=== PATIENT | male | born 1970 ===

== ENCOUNTER 2018-03-02 09:23 | Inpatient (IN) | payer BC, MEDICAID ==
[2018-03-02] MEDS ORDERED: DiphenhydrAMINE 50 mg/ml Inj IVP STA (09:29)
[2018-03-02] MEDS ORDERED: Sodium Chloride 0.9% 1,000 ML IV STA ×2 (09:29→11:44)
--- NOTE | 2018-03-02 09:31 | ED PDOC ---
Arrival/HPI - General Time Seen by Provider: 03/02/18 09:26 Historian: Patient - History of Present Illness Narrative History of Present Illness (Text): 03/02/18 09:31 48 y/o male, pmh including seizure, psychiatric history of psychosis/ schizophrenia, nkda, biba for abnormal movement and yelling started this morning after using heroine x 2 hours. Pt. stated that he did use the heroine, can't control yelling and movement, no seizure activity, no chest pain or shortness of breath, no numbness or tingling, no night sweat, no rash, no palpitation, no change in vision, no homicidal or suicidal ideation, no other medical or psychological complaints. Past Medical History - Provider Review Nursing Documentation Reviewed: Yes - Cardiac Hx Cardiac Disorders: No Hx Hypertension: No - Pulmonary Hx Tuberculosis: No - Neurological HX Cerebrovascular Accident: No Hx Seizures: No - Hematological/Oncological Hx Cancer: No - Musculoskeletal/Rheumatological Hx Falls: No - Genitourinary/Gynecological Hx Sexually Transmitted Diseases: No - Psychiatric Hx Substance Use: Yes (Marijuana) Other/Comment: According to sister and mother - patient has been talking to himself in his room since he was a teenager, he has beem exhibiting these behaviors more severely over the past 6 months Family/Social History - Physician Review Nursing Documentation Reviewed: Yes Family/Social History: Unknown Family HX Smoking Status: Light Smoker < 10 Cigarettes Daily Hx Alcohol Use: No Hx Substance Use: Yes (Marijuana) Allergies/Home Meds Allergies/Adverse Reactions: Allergies No Known Allergies Allergy (Verified 03/02/18 10:07) Home Medications: Home Meds Medication Instructions Recorded Confirmed Unobtainable 03/02/18 03/02/18 Review of Systems - Review of Systems Constitutional: absent: Fatigue, Fevers Eyes: absent: Vision Changes ENT: absent: Hearing Changes Respiratory: absent: SOB, Cough Cardiovascular: absent: Chest Pain Gastrointestinal: absent: Abdominal Pain, Nausea, Vomiting Neurological: absent: Headache, Dizziness Psychiatric: Other (+abnormal contracture and yelling. ). absent: Anxiety, Depression, Suicidal Ideation Physical Exam Vital Signs Pulse Resp BP Pulse Ox 03/02/18 11:41 95 H 16 116/56 L 93 L 03/02/18 09:42 105 H 17 123/62 90 L - Systems Exam Head: Present: Atraumatic, Normocephalic Pupils: Present: Pinpoint (3mm) Extroacular Muscles: Present: EOMI Conjunctiva: Present: Normal Mouth: Present: Moist Mucous Membranes Neck: Present: Normal Range of Motion Respiratory/Chest: Present: Clear to Auscultation, Good Air Exchange. No: Respiratory Distress, Accessory Muscle Use Cardiovascular: Present: Regular Rate and Rhythm, Normal S1, S2. No: Murmurs Abdomen: No: Tenderness, Distention, Peritoneal Signs Back: Present: Normal Inspection Upper Extremity: Present: Normal Inspection. No: Cyanosis, Edema Lower Extremity: Present: Normal Inspection. No: Edema Neurological: Present: GCS=15, CN II-XII Intact, Speech Normal, Motor Func Grossly Intact, Gait Normal, Memory Normal, Other (abnormal contracture of bilateral upper and lower extremities with yelling) Skin: Present: Warm, Dry, Normal Color. No: Rashes Psychiatric: Present: Alert, Oriented x 3, Normal Insight, Normal Concentration Medical Decision Making ED Course and Treatment: 03/02/18 09:28 Differential: rhabdomylosis vs. electroyte imbalance vs. adverse effect from drug abuse vs. dystonia -labs/drug screen. -IVF/benadryl -Chest xray -Oxygen 2L nasal canula prn -Observe and reassess 03/02/18 09:51 -Yelling and abnormal contracture resolved with IV benadryl, resting well on bed , pending labs. 03/02/18 10:44 -CBC 23, afebrile, likely stress and drug abuse induced, woke up from the benadryl effect and was resolved but return with same signs and symptoms but much lesser severity, valium 10mg po ordered for his spasm, pending CMP and drug screen 03/02/18 11:02 -AST 600s, Ammonia and acetaminophen level ordered 03/02/18 12:30 -Chest xray: no active disease -EKG: Sinus Tachycardia @ 112 BPM, acute slightly ST depression noted on lead II /III/aVF, T wave inversion on lead V6. -Labs are non-significant except wbc 23.2 (blood culture ordered), Anion gap 31/ Bun 27/Creatine 1.9/AST 674/ALT 2872/GFR 38 which all these labs are acute, Potassium level 5.6 (kayaxylate 15gm po ordered), glucose 51 (D50 ordered, D5W 125cc/hr). -Troponin show -Ammonia level within normal limit. -Acetaminophen level within normal limit -Drug screen is negative -Pt. needs admission, spoke to the patient about all labs/radiology result, agreed to be admitted. -Dystonia currently resolved but he has new onset of renal failure with hyperkalemia and elevated LFTS/abnormal ekg which they all can be due to the rhabdomylosis but other underlying disease needs to be explored. -I spoke to Dr. Morales about the case, discussed about the case/labs/radiology result, agreed on the admission to her service -I discussed with DR. Winkler, he will put in the admission order. 03/02/18 14:00 -I spoke to the emergency medical services coordinator Dr. Morales, discussed about the case/labs and he will follow up on the pending troponin 03/02/18 14:17 -Troponin 0.46, no chest pain or shortness of breath, no cardiopulmonary complaints, likely kidney injury induced from rhabdomylosis, discussed and agreed with the decision by Dr. Winkler. 03/02/18 14:38 -I spoke to Dr. Morales HSolomon, discussed about troponin level, they will trend it. - Critical Care Critical Care Minutes: 30 minutes Critical Care Time: Unstable Narrative Critical Care (Text): 03/02/18 12:34 rhabdomylosis/renal failure/hyperkalemia/abnormal ekg/dystonia, aggresive IV hydration/benadryl/valium for his muscle contracture. - Lab Interpretations Lab Results: 03/02/18 09:30 03/02/18 10:14 Lab Results 03/02/18 12:00: Lactate Dehydrogenase 4281 H, Total Creatine Kinase Pending, Troponin I 0.46 H* D 03/02/18 11:30: Ammonia 33 03/02/18 11:30: Urine Opiates Screen Negative, Urine Methadone Screen Negative, Ur Barbiturates Screen Negative, Ur Phencyclidine Scrn Negative, Ur Amphetamines Screen Negative, U Benzodiazepines Scrn Negative, U Oth Cocaine Metabols Negative, U Cannabinoids Screen Negative 03/02/18 10:14: Sodium 141, Potassium 5.6 H*, Chloride 97 L, Carbon Dioxide 20 L , Anion Gap 30 H, BUN 27 H, Creatinine 1.9 H, Est GFR ( Amer) 46, Est GFR (Non-Af Amer) 38, Random Glucose 51 L, Calcium 9.3, Total Bilirubin 1.3, AST 674 H D, ALT 2872 H, Alkaline Phosphatase 173 H D, Total Creatine Kinase 76367 H, CK-MB (CK-2) 111.0 H, CK-MB (CK-2) % 1.0 L, Total Protein 7.1, Albumin 4.5, Globulin 2.6, Albumin/Globulin Ratio 1.7 03/02/18 09:45: Acetaminophen < 10.0 L 03/02/18 09:30: WBC 23.2 H D, RBC 3.81, Hgb 10.1 L D, Hct 31.3 L, MCV 82.2, MCH 26.5, MCHC 32.3, RDW 14.6 H, Plt Count 441, MPV 10.5, Gran % 64.7, Lymph % (Auto ) 16.7 L, [place]wey % (Auto) 17.2 H, Eos % (Auto) 0.9 L, Baso % (Auto) 0.5, Gran # 15.01 H, Lymph # (Auto) 3.9 H, [place]wey # (Auto) 4.0 H, Eos # (Auto) 0.2, Baso # ( Auto) 0.12 I have reviewed the lab results: Yes - RAD Interpretation Radiology Orders: 03/02/18 09:58 CHEST PORTABLE [RAD] Stat Date of service: 03/02/2018 HISTORY: medical clearance COMPARISON: 02/13/2018 FINDINGS: LUNGS: No active pulmonary disease. PLEURA: No significant pleural effusion identified, no pneumothorax apparent. CARDIOVASCULAR: Normal. OSSEOUS STRUCTURES: No significant abnormalities. VISUALIZED UPPER ABDOMEN: Normal. OTHER FINDINGS: None. IMPRESSION: No active disease. Waste Disposal Attendant: Radiologist - EKG Interpretation EKG Interpretation (Text): 03/02/18 11:47 Sinus Tachycardia @ 112 BPM, acute slightly ST depression noted on lead II/III/ aVF, T wave inversion on lead V6. Interpreted by ED Physician: Yes Type: 12 lead EKG Comparison: Com.w/previous EKG - Medication Orders Current Medication Orders: Heparin Sodium (Porcine) (Heparin) 5,000 units SC Q8 RAVI PRN Reason: Protocol Dextrose/Sodium Chloride (Dextrose 5%/0.9% Ns 1000 Ml) 1,000 mls @ 150 mls/hr IV .Q6H40M RAVI Discontinued Medications Dextrose (Dextrose 50% Inj) 50 ml IVP STAT STA Stop: 03/02/18 11:11 Last Admin: 03/02/18 11:34 Dose: 50 ml IVP Administration Document 03/02/18 11:34 [facility] [place] (Rec: 03/02/18 11:34 [facility] [place] [id number]) Charges for Administration # of IVP Administrations 1 Diazepam (Valium) 10 mg PO ONCE ONE PRN Reason: Protocol Stop: 03/02/18 10:41 Last Admin: 03/02/18 10:48 Dose: 10 mg Diphenhydramine HCl (Benadryl) 50 mg IVP STAT STA Stop: 03/02/18 09:30 Last Admin: 03/02/18 09:41 Dose: 50 mg IVP Administration Document 03/02/18 09:41 [facility] [place] (Rec: 03/02/18 09:41 [facility] [place] [id number]) Charges for Administration # of IVP Administrations 1 Sodium Chloride (Sodium Chloride 0.9%) 1,000 mls @ 999 mls/hr IV .Q1H1M STA Stop: 03/02/18 10:29 Last Admin: 03/02/18 09:40 Dose: 999 mls/hr eMAR Start Stop Document 03/02/18 09:40 [facility] [place] (Rec: 03/02/18 09:41 [facility] [place] [id number]) Intravenous Solution Start Date 03/02/18 Start Time 09:40 End Date 03/02/18 End time 10:41 Total Infusion Time 61 Sodium Chloride (Sodium Chloride 0.9%) 1,000 mls @ 999 mls/hr IV .Q1H1M STA Stop: 03/02/18 12:44 Last Admin: 03/02/18 11:55 Dose: 999 mls/hr eMAR Start Stop Document 03/02/18 11:55 [facility] [place] (Rec: 03/02/18 11:55 [facility] [place] [id number]) Intravenous Solution Start Date 03/02/18 Start Time 11:55 End Date 03/02/18 End time 12:56 Total Infusion Time 61 Dextrose/Sodium Chloride (Dextrose 5%/0.9% Ns 1000 Ml) 1,000 mls @ 125 mls/hr IV .Q8H RAVI Last Admin: 03/02/18 14:05 Dose: 125 mls/hr eMAR Start Stop Document 03/02/18 14:05 [facility] (Rec: 03/02/18 14:05 [facility] [id number]) Intravenous Solution Start Date 03/02/18 Start Time 14:05 Sodium Polystyrene Sulfonate (Kayexalate Susp) 15 gm PO ONCE ONE Stop: 03/02/18 11:11 Last Admin: 03/02/18 11:34 Dose: 15 gm - PA / DRY CLEANING SUPERVISOR / Resident Statement MD/DO has reviewed & agrees with the documentation as recorded. Disposition/Present on Arrival - Present on Arrival Any Indicators Present on Arrival: No History of DVT/PE: No History of Uncontrolled Diabetes: No Urinary Catheter: No History of Decub. Ulcer: No History Surgical Site Infection Following: None - Disposition Have Diagnosis and Disposition been Completed?: Yes Diagnosis: Renal failure, Hyperkalemia, Leukocytosis, Dystonia, Hypoglycemia, EKG abnormalities Disposition: HOSPITALIZED Disposition Time: 11:19 Patient Plan: Admission, Telemetry Patient Problems: Current Active Problems Problem Status Onset Dystonia Acute EKG abnormalities Acute Hyperkalemia Acute Hypoglycemia Acute Leukocytosis Acute Renal failure Acute Condition: STABLE
[2018-03-02 09:46] VITALS: BMI 21.7
[2018-03-02 09:50] LABS: BASO # 0.12 K/mm3 (0.0-2.0); BASO % 0.5 % (0.0-3.0); EOS # 0.2 (0.0-0.7); EOS % 0.9 % (1.5-5.0); GRAN # 15.01 (1.4-6.5); GRAN % 64.7 % (50.0-68.0); LYMPH # 3.9 (1.2-3.4); LYMPH % 16.7 % (22.0-35.0); MEAN CELL VOLUME 82.2 fl (80.0-105.0); MEAN CORPUSCULAR HEMOGLOBIN 26.5 pg (25.0-35.0); MEAN CORPUSCULAR HGB CONC 32.3 g/dl (31.0-37.0); MEAN PLATELET VOLUME 10.5 fl (7.0-11.0); MONO % 17.2 % (1.0-6.0); RBC 3.81 10^6/uL (3.5-6.1); RED CELL DISTRIBUTION WIDTH 14.6 % (11.5-14.5); WHITE BLOOD COUNT 23.2 10^3/ul (4.5-11.0)
[2018-03-02 09:51] LABS: HEMOGLOBIN 10.1 g/dL (14.0-18.0)
[2018-03-02 10:48] LABS: ALB/GLOB RATIO 1.7 (1.1-1.8); ALBUMIN 4.5 g/dL (3.0-4.8); CALCIUM 9.3 mg/dL (8.4-10.5)
--- NOTE | 2018-03-02 10:53 | RAD ---
Date of service: 03/02/2018 HISTORY: medical clearance COMPARISON: 02/13/2018 FINDINGS: LUNGS: No active pulmonary disease. PLEURA: No significant pleural effusion identified, no pneumothorax apparent. CARDIOVASCULAR: Normal. OSSEOUS STRUCTURES: No significant abnormalities. VISUALIZED UPPER ABDOMEN: Normal. OTHER FINDINGS: None. IMPRESSION: No active disease.
[2018-03-02] MEDS ORDERED: Sod Polystyrene Sulf 15 gm/60 ml Susp PO ONE (11:10)
[2018-03-02] MEDS ORDERED: Dextrose 50% SYRINGE Inj (50 ml) IVP STA (11:10)
[2018-03-02 11:58] LABS: OPIATES, UR NEGATIVE (NEGATIVE)
[2018-03-02 12:52] LABS: BARBITURATES, UR NEGATIVE (NEGATIVE); BENZODIAZEPINES, UR NEGATIVE (NEGATIVE); PHENCYCLIDINE, UR NEGATIVE (NEGATIVE)
[2018-03-02] MEDS ORDERED: Dextrose 5%/0.9% NS 1,000 ML IV SCH (13:00)
--- NOTE | 2018-03-02 13:10 | CP.PCM.HP ---
<Eliseo Morales - Last Filed: 03/02/18 15:56> History of Present Illness - History of Present Illness History of Present Illness: Subjective: CC: abnormal movement and yelling HPI: Patient is a 48 year old male with a past medical history of seizure disorder, EKG abnormalities, and psychosis/schizophrenia who presents to the emergency department via EMS for evaluation and treatment of agitation. Patient states he does not want family present at bedside and so his sister was asked to leave. Patient states he snorted what he believed to be heroin this morning. Patient admits to experiencing bilateral involuntary upper extremity contracture and recalls intermittent yelling. Denies associated pain. Denies auditory and visual hallucinations. Denies suicidal and homicidal ideation. Further denies fever, chills, chest pain, shortness of breath, abdominal pain, nausea, vomiting , diarrhea, and urinary symptoms. 12 point ROS negative except as indicated in HPI Past medical history: seizure disorder, EKG abnormalities, and psychosis/ schizophrenia Past Surgical History: none Allergies: NKDA Social History: patient admits to smoking occasionally, drinking alcohol occasionally, denies illicit drug use, currently unemployed Family History: unknown- as patient does not comply with question Medications: no pharmacy information provided, previous discharge medications include depakote 500mg BID and aspirin 81mg daily Physical Examination: - Constitutional Constitutional Exam: No acute distress - Head Exam Head Exam: ATRAUMATIC, NORMAL INSPECTION - Eye Exam Eye Exam: EOMI, Miosis bilaterally Normal appearance, PERRL - ENT Exam ENT Exam: Mucous Membranes Moist - Respiratory Exam Respiratory Exam: NORMAL BREATHING PATTERN. absent: Rales, Rhonchi, Wheezes, Respiratory Distress - Cardiovascular Exam Cardiovascular Exam: RRR, +S1, +S2. absent: Gallop, Rubs, Systolic Murmur - GI/Abdominal Exam GI & Abdominal Exam: Normal Bowel Sounds, Soft. absent: Distended, Firm, Organomegaly, Tenderness - Neurological Exam Neurological exam: Alert, Awake, Oriented x 3, muscle strength 5/5 bilateral upper and lower extremities, sensation is intact to touch, responds to verbal stimuli, follows commands - Psychiatric Exam Psychiatric exam: Erratic Behavior - Skin Skin Exam: Dry, Intact, Normal Color, Warm Assessment and Plan: Patient is a 48 year old male with a past medical history of seizure disorder, EKG changes, and psychosis/schizophrenia who was admitted for evaluation and treatment of agitation. In the emergency department the patient underwent routine lab work revealing a leukocytosis, anemia, hypoglycemia, elevated potassium, hypochloremia, azotemia, elevated LFTs, and elevated CPK. Patient was treated with 2L NS, 1 amp of D50, 15 grams of kayexylate, 10mg PO valium, 50mg IV benadryl, and placed on D5 NS @125cc/hr. CXR in ED revealed no active disease. EKG revealed ST depression in leads II, III, and AVF. Rhabdomyolysis - CPK reviewed, trended, and appreciated - elevated CPK 42757 - started D5 NS @ 150 cc/hr - recheck CPK and trend Agitation/ Erractic Behavior - ziprasidon prn ordered - psychiatry consulted- appreciate recommendations Acute Kidney Injury - BUN creatine reviewed and appreciated - likely secondary to rhabdomyolysis - start D5 NS @ 150 cc/hr - monitor closely via CMP Elevated Troponins, EKG ST Depression - cardiology consulted- as per recommendations no anticoagulation required at this time - EKG- Sinus Tachycardia HR 112 bpm, QTc 430ms, LV hypertrophy with repolariztion abnormality - troponins trended q6hx3, EKG q6hx3 - aspirin 324mg x 1, aspirin 81mg daily Leukocytosis - likely stress induced vs drug induced - UDS negative - will trend via CBC Elevated LFTs - likely rhabdomyolysis vs drug induced however acetaminophen level is below 10 and UDS negative - total bilirubin within normal limits - trend via CMP Hyperkalemia - 15 grams of kayexylate given in ED - repeat CMP pending at 1600 - no EKG changes Normocytic Anemia - hemoglobin reviewed, trended, and appreciated - at baseline History of Seizure Disorder - depakote level ordered and pending - started patient on home depakote - seizure precautions - neurology consulted- appreciate recommendations Prophylaxis - DVT ppx- SCDs - GI ppx- not indicated at this time Patient seen, case reviewed with, and plan approved by attending, Dr. Lorena Morales. Present on Admission - Present on Admission Any Indicators Present on Admission: No Past Patient History - Infectious Disease Hx of Infectious Diseases: None - Past Social History Smoking Status: Light Smoker < 10 Cigarettes Daily - CARDIAC Hx Cardiac Disorders: No Hx Hypertension: No - PULMONARY Hx Tuberculosis: No - NEUROLOGICAL HX Cerebrovascular Accident: No Hx Seizures: No - HEMATOLOGICAL/ONCOLOGICAL Hx Cancer: No - MUSCULOSKELETAL/RHEUMATOLOGICAL Hx Falls: No - GENITOURINARY/GYNECOLOGICAL Hx Sexually Transmitted Disorders: No - PSYCHIATRIC Hx Substance Use: Yes (Marijuana) Other/Comment: According to sister and mother - patient has been talking to himself in his room since he was a teenager, he has beem exhibiting these behaviors more severely over the past 6 months Meds Allergies/Adverse Reactions: Allergies Allergy/AdvReac Type Severity Reaction Status Date / Time No Known Allergies Allergy Verified 03/02/18 10:07 Results - Vital Signs Recent Vital Signs: Last Vital Signs Temp Pulse 95 H 03/02/18 11:41 Resp 16 03/02/18 11:41 BP 116/56 L 03/02/18 11:41 Pulse Ox 93 L 03/02/18 11:41 - Labs Result Diagrams: 03/02/18 09:30 03/02/18 10:14 Labs: Laboratory Results - last 24 hr 03/02/18 03/02/18 03/02/18 09:30 09:45 10:14 WBC 23.2 H D RBC 3.81 Hgb 10.1 L D Hct 31.3 L MCV 82.2 MCH 26.5 MCHC 32.3 RDW 14.6 H Plt Count 441 MPV 10.5 Gran % 64.7 Lymph % (Auto) 16.7 L [place] % (Auto) 17.2 H Eos % (Auto) 0.9 L Baso % (Auto) 0.5 Gran # 15.01 H Lymph # (Auto) 3.9 H [place] # (Auto) 4.0 H Eos # (Auto) 0.2 Baso # (Auto) 0.12 Sodium 141 Potassium 5.6 H* Chloride 97 L Carbon Dioxide 20 L Anion Gap 30 H BUN 27 H Creatinine 1.9 H Est GFR ( Amer) 46 Est GFR (Non-Af Amer) 38 Random Glucose 51 L Calcium 9.3 Total Bilirubin 1.3 AST 674 H D ALT 2872 H Alkaline Phosphatase 173 H D Ammonia Total Creatine Kinase 82756 H CK-MB (CK-2) 111.0 H CK-MB (CK-2) % 1.0 L Total Protein 7.1 Albumin 4.5 Globulin 2.6 Albumin/Globulin Ratio 1.7 Urine Opiates Screen Urine Methadone Screen Acetaminophen < 10.0 L 03/02/18 03/02/18 11:30 11:30 WBC RBC Hgb Hct MCV MCH MCHC RDW Plt Count MPV Gran % Lymph % (Auto) [place] % (Auto) Eos % (Auto) Baso % (Auto) Gran # Lymph # (Auto) [place] # (Auto) Eos # (Auto) Baso # (Auto) Sodium Potassium Chloride Carbon Dioxide Anion Gap BUN Creatinine Est GFR ( Amer) Est GFR (Non-Af Amer) Random Glucose Calcium Total Bilirubin AST ALT Alkaline Phosphatase Ammonia 33 Total Creatine Kinase CK-MB (CK-2) CK-MB (CK-2) % Total Protein Albumin Globulin Albumin/Globulin Ratio Urine Opiates Screen Negative Urine Methadone Screen Negative Acetaminophen <Lorena Morales R - Last Filed: 03/02/18 19:00> Results - Vital Signs Recent Vital Signs: Last Vital Signs Temp 98.7 F 03/02/18 18:02 Pulse 54 L 03/02/18 18:02 Resp 17 03/02/18 18:02 BP 115/61 03/02/18 18:02 Pulse Ox 98 03/02/18 18:02 - Labs Result Diagrams: 03/02/18 09:30 03/02/18 10:14 Attending/Attestation - Attestation I have personally seen and examined this patient.: Yes I have fully participated in the care of the patient.: Yes I have reviewed all pertinent clinical information: Yes Notes (Text): Patient seen and examined by me at 14:30 with resident. Case including HPI, physical exam, and physical assessment and plan discussed with resident. Agree with above with following additions/corrections. Patient is a 48-year-old male with past medical history significant for seizure disorder, EKG abnormalities, psychosis and schizophrenia that presented to the emergency room for abnormal movements and yelling. Patient was found at home to have muscle contractures in his arms which made him yell. Patient's family called the police who in return called EMS. Patient states he snorted what he believed was heroin a few hours prior. He states he got it from someone on the streets. He states this is the first time he's used it. Patient does complain of some bilateral arm pain. He denies using IV drugs. No chest pain or shortness of breath. No headaches or dizziness. No fevers or chills. No nausea, vomiting, abdominal pain. No dysuria. No neck pain or back pain. No diarrhea or constipation. Patient was recently admitted to the hospital with bizarre behavior. Patient was given Valium and Benadryl in the ED. Patient was also found to be hypoglycemic and given amp of D50. All 14 point review of systems reviewed by me. See above HPI. All the other systems are negative. Physical exam: Gen: Awake and alert sitting up in bed in no acute distress HEENT: Normocephalic, atraumatic. Extraocular muscles intact, pupils equal reactive, no scleral icterus. Oropharynx is pink and moist, no pharyngeal erythema or exudate appreciated. Neck is supple. Hearing grossly intact. Ears and nose externally unremarkable. Cardiovascular: Normal rhythm, normal S1-S2. No murmurs, rubs, or gallops appreciated Pulmonary: Normal respiratory effort. No rhonchi, rales or wheezing appreciated. Gastrointestinal: Soft, nontender, nondistended, positive bowel sounds all 4 quadrants, no guarding Musculoskeletal: Normal range of motion all extremities, no calf tenderness, no CVA tenderness. Central nervous system: AAO 3. Cranial nerves 2 through 12 grossly intact. 5 out of 5 muscle strength all extremities. Sensation intact. Dermatologic: Skin warm and dry Assessment and plan: Patient is a 48-year-old male with past medical history significant for seizure disorder, EKG abnormalities, psychosis and schizophrenia that presented to the emergency room for abnormal movements and yelling. Patient found to have KAREN, leukocytosis, hyperkalemia, hypoglycemia, elevated LFTs, elevated troponin, and rhabdomyolysis 1. Ingestion of unknown substance. Involuntary muscle contractures may be secondary to this. Patient is unsure what he took. Patient believed it was heroin, however UDS is negative. Psych consult, follow-up recommendations. 2. Rhabdomyolysis. Likely secondary to involuntary muscle contractures. Placed on IV fluids. Monitor CPK levels 3. Elevated LFTs. Likely secondary to rhabdomyolysis. Continue with IV fluids. Follow up repeat labs and monitor trend 4. KAREN. May be secondary to ingestion of unknown substance, dehydration, and rhabdomyolysis. Placed on IV fluids. Follow up repeat labs in a.m. 5. Elevated troponin. May be demand ischemia. Cardiology consult that, recommendations appreciated. Discussed with Dr. Billy. Continue with aspirin. Guarded on Coreg. Monitor on telemetry. Follow serial troponin and EKG. Patient was scheduled for outpatient stress test yesterday 03/01/2018 however he did not go to this appointment. 6. Hyperkalemia. Patient given calcium gluconate and Kayexalate. Follow up Repeat labs. 7. Hypoglycemia. Patient was given an amp of D50 in the emergency room. Placed on D5 IV fluids. Monitor blood sugar 7. Leukocytosis. Likely reactive. Follow up repeat labs. 8. Anemia. Chronic. H&H stable. Continue to monitor. 9. History of seizure disorder. Continue home Depakote. Follow up Depakote levels 10. History of agitation and psychosis. Psych consulted, follow-up recommendations. Placed on Geodon every 6 hours as needed. Placed on one-to-one 11. DVT prophylaxis. Heparin 5000 units subcutaneous every 8 hours Case was discussed in detail with the patient and durable medical equipment technician regarding current diagnosis and treatment plan.
[2018-03-02 14:01] LABS: TROPONIN I 0.46 ng/mL
[2018-03-02] MEDS: Dextrose 5%/0.9% NS 1,000 ML IV SCH ×2 (15:18→23:50)
--- NOTE | 2018-03-02 16:37 | CARD ---
APPROVED REPORT Date of service: 03/02/2018 EKG Measurement Heart [id number] [id number] <Conclusion> Sinus tachycardia Possible Left atrial enlargement Left ventricular hypertrophy with repolarization abnormality Abnormal ECG
[2018-03-02] MEDS ORDERED: Pneumococcal 23-Valent Vaccine IM ONE (17:14)
[2018-03-02] MEDS: Divalproex 500 mg DR(BID formulation) PO SCH (19:57)
[2018-03-02 20:29] LABS: ALB/GLOB RATIO 1.4 (1.1-1.8); ALBUMIN 3.4 g/dL (3.0-4.8); AST/SGOT 503 U/L (17-59); BLOOD UREA NITROGEN 27 mg/dL (7-21); CALCIUM 8.6 mg/dL (8.4-10.5); GFR AFRICAN-AMERICAN > 60; GFR NON-AFRICAN AMERICAN > 60
[2018-03-02 20:59] LABS: ALT/SGPT 2129 U/L (7-56); TROPONIN I 0.29 ng/mL
[2018-03-03] MEDS ORDERED: DiphenhydrAMINE 50 mg/ml Inj IVP ONE (03:59)
[2018-03-03] MEDS: Dextrose 5%/0.9% NS 1,000 ML IV SCH ×2 (06:42→21:00)
[2018-03-03 06:54] LABS: BASO # 0.04 K/mm3 (0.0-2.0); BASO % 0.6 % (0.0-3.0); EOS # 0.1 (0.0-0.7); EOS % 2.1 % (1.5-5.0); GRAN # 4.26 (1.4-6.5); GRAN % 69.1 % (50.0-68.0); LYMPH % 15.4 % (22.0-35.0); MEAN CELL VOLUME 80.5 fl (80.0-105.0); MEAN CORPUSCULAR HEMOGLOBIN 26.3 pg (25.0-35.0); MEAN CORPUSCULAR HGB CONC 32.7 g/dl (31.0-37.0); MEAN PLATELET VOLUME 10.3 fl (7.0-11.0); MONO # 0.8 (0.1-0.6); MONO % 12.8 % (1.0-6.0); RBC 3.34 10^6/uL (3.5-6.1)
[2018-03-03 07:14] LABS: ALB/GLOB RATIO 1.3 (1.1-1.8); ALBUMIN 2.7 g/dL (3.0-4.8); AST/SGOT 376 U/L (17-59); BLOOD UREA NITROGEN 25 mg/dL (7-21); CALCIUM 8.4 mg/dL (8.4-10.5); GFR AFRICAN-AMERICAN > 60; GFR NON-AFRICAN AMERICAN > 60
[2018-03-03 07:25] LABS: ALT/SGPT 1650 U/L (7-56); TROPONIN I 0.21 ng/mL
[2018-03-03 07:27] LABS: HEMOGLOBIN 8.8 g/dL (14.0-18.0); WHITE BLOOD COUNT 6.2 10^3/ul (4.5-11.0)
--- NOTE | 2018-03-03 08:28 | CARD ---
APPROVED REPORT Date of service: 03/02/2018 EKG Measurement Heart [id number] 92P50 [id number] <Conclusion> Sinus bradycardia with short OK LVH ST_T Changes-Correlate Clinically.
[2018-03-03] MEDS ORDERED: Magnesium 2 gm/50 ml NS 2 GM/50 ML BAG IVPB ONE (08:41)
[2018-03-03 08:52] LABS: CK MB% 1.4 % (2.5-3.0); CK-MB 41.7 ng/mL (0.0-3.6)
[2018-03-03] MEDS: Divalproex 500 mg DR(BID formulation) PO SCH (09:35)
--- NOTE | 2018-03-03 10:55 | CARD ---
APPROVED REPORT Date of service: 03/03/2018 EKG Measurement Heart [id number] <Conclusion> Sinus bradycardia with short MS RSR' or QR pattern in V1 suggests right ventricular conduction delay Moderate voltage criteria for LVH, may be normal variant ST-T Changes. Abnormal ECG
--- NOTE | 2018-03-03 11:48 | CP.PCM.CON ---
History of Present Illness - History of Present Illness History of Present Illness: Hiram Cross PGY2 - Neurology Consult Note for Dr. Hannah CC: History of seizure activity HPI: 48 year old male with past medical history of seizures, psychosis/ schizophrenia who presented to ED via EMS for agitation. Patient is interviewed with one to one sitter at bedside and without family present. During interview today patient indicated he had no reason to be brought to the hospital. When informed of previous records indicating bilateral involuntary upper extremity contracture and intermittent yelling he had no response. Patient indicated yesterday he felt fine and at his baseline and that he was brought to the hospital by his family. He denies any seizure activity, biting of tongue, loss of urine or bowel. He reports taking prescribed medication from pervious discharge for his seizures. He indicates that he is compliant with all of his medications. Patient denies auditory and visual hallucinations. Denies chest pain, shortness of breath, abdominal pain, headache, fever, chills, focal deficits, weakness and change in mental status. PMH: Seizure disorder, Psychosis/schizophrenia PSH: Denies SOCHX: Tobacco: light smoker, ETOH: Social, ID: Denies - Currently lives with family, unemployed FMH: Denies ALL: NKDA MEDS: Depakote 500mg BID, ASA 81mg Daily Review of Systems - Review of Systems All systems: reviewed and no additional remarkable complaints except (as mentioned in HPI) Past Patient History - Infectious Disease Hx of Infectious Diseases: None - Past Social History Smoking Status: Light Smoker < 10 Cigarettes Daily Alcohol: None Drugs: Denies - CARDIAC Hx Cardiac Disorders: No Hx Hypertension: No - PULMONARY Hx Tuberculosis: No - NEUROLOGICAL HX Cerebrovascular Accident: No Hx Seizures: No - HEENT Hx HEENT Problems: No - RENAL Hx Chronic Kidney Disease: No - ENDOCRINE/METABOLIC Hx Endocrine Disorders: No - HEMATOLOGICAL/ONCOLOGICAL Hx Cancer: No - INTEGUMENTARY Hx Dermatological Problems: Yes Other/Comment: abrasion left knee, multiple bruises ble, abrasions upper and mid back - MUSCULOSKELETAL/RHEUMATOLOGICAL Hx Falls: No - GASTROINTESTINAL Hx Gastrointestinal Disorders: Yes (weight loss) - GENITOURINARY/GYNECOLOGICAL Hx Sexually Transmitted Disorders: No - PSYCHIATRIC Hx Substance Use: Yes (Marijuana) Other/Comment: According to sister and mother - patient has been talking to himself in his room since he was a teenager, he has beem exhibiting these behaviors more severely over the past 6 months - SURGICAL HISTORY Hx Surgeries: No Meds Allergies/Adverse Reactions: Allergies Allergy/AdvReac Type Severity Reaction Status Date / Time No Known Allergies Allergy Verified 03/02/18 10:07 - Medications Medications: Current Medications Aspirin (Ecotrin) 81 mg PO DAILY [facility] Last Admin: 03/03/18 09:36 Dose: 81 mg Atorvastatin Calcium (Lipitor) 20 mg PO DIN [facility] Last Admin: 03/02/18 22:10 Dose: 20 mg Carvedilol (Coreg) 3.125 mg PO BID [facility] Last Admin: 03/03/18 09:38 Dose: Not Given Divalproex Sodium (Depakote Dr(*Bid*)) 500 mg PO BID [facility] PRN Reason: Protocol Last Admin: 03/03/18 09:35 Dose: 500 mg Heparin Sodium (Porcine) (Heparin) 5,000 units SC Q8 [facility] PRN Reason: Protocol Last Admin: 03/03/18 06:41 Dose: 5,000 units Dextrose/Sodium Chloride (Dextrose 5%/0.9% Ns 1000 Ml) 1,000 mls @ 150 mls/hr IV .Q6H40M [facility] Last Admin: 03/03/18 06:42 Dose: 150 mls/hr Ziprasidone (Geodon Inj) 20 mg IM Q6H PRN; Protocol PRN Reason: Agitation Physical Exam - Constitutional Appears: No Acute Distress - Head Exam Head Exam: ATRAUMATIC, NORMAL INSPECTION, NORMOCEPHALIC - Eye Exam Eye Exam: EOMI, PERRL - ENT Exam ENT Exam: Mucous Membranes Moist - Respiratory Exam Respiratory Exam: Clear to Auscultation Bilateral, NORMAL BREATHING PATTERN - Cardiovascular Exam Cardiovascular Exam: REGULAR RHYTHM, +S1, +S2 - GI/Abdominal Exam GI & Abdominal Exam: Normal Bowel Sounds, Soft. absent: Tenderness - Neurological Exam Neurological exam: Alert, Normal Gait, Oriented x3 Additional comments: AAOx3, no slurred speech or response to internal stimuli noted Coordination is intact Heel to lazcano appropriate negative rhomberg Strength 5/5 in all four extremities Insight poor - Psychiatric Exam Psychiatric exam: Normal Mood - Skin Skin Exam: Dry, Intact Results - Vital Signs Recent Vital Signs: Last Vital Signs Temp 97.9 F 03/03/18 00:01 Pulse 50 L 03/03/18 09:38 Resp 22 03/03/18 00:01 BP 122/64 03/03/18 00:01 Pulse Ox 98 03/02/18 18:02 - Labs Result Diagrams: 03/04/18 06:00 03/03/18 06:30 Labs: Laboratory Results - last 24 hr 03/02/18 03/02/18 03/03/18 20:05 20:05 00:20 WBC RBC Hgb Hct MCV MCH MCHC RDW Plt Count MPV Gran % Lymph % (Auto) [place] % (Auto) Eos % (Auto) Baso % (Auto) Gran # Lymph # (Auto) [place] # (Auto) Eos # (Auto) Baso # (Auto) D-Dimer, Quantitative 356 H Sodium 137 Potassium 4.1 Chloride 102 Carbon Dioxide 29 Anion Gap 11 BUN 27 H Creatinine 1.2 Est GFR ( Amer) > 60 Est GFR (Non-Af Amer) > 60 Random Glucose 82 Calcium 8.6 Phosphorus Magnesium Total Bilirubin 0.7 AST 503 H D ALT 2129 H Alkaline Phosphatase 116 Total Creatine Kinase CK-MB (CK-2) CK-MB (CK-2) % Troponin I 0.29 H* D 0.24 H* Total Protein 5.8 Albumin 3.4 Globulin 2.4 Albumin/Globulin Ratio 1.4 Valproic Acid 03/03/18 03/03/18 03/03/18 06:00 06:30 06:30 WBC 6.2 D RBC 3.34 L Hgb 8.8 L Hct 26.9 L MCV 80.5 MCH 26.3 MCHC 32.7 RDW 15.0 H Plt Count 193 MPV 10.3 Gran % 69.1 H Lymph % (Auto) 15.4 L [place] % (Auto) 12.8 H Eos % (Auto) 2.1 Baso % (Auto) 0.6 Gran # 4.26 Lymph # (Auto) 1.0 L [place] # (Auto) 0.8 H Eos # (Auto) 0.1 Baso # (Auto) 0.04 D-Dimer, Quantitative Sodium 140 Potassium 4.5 Chloride 105 Carbon Dioxide 28 Anion Gap 11 BUN 25 H Creatinine 1.1 Est GFR ( Amer) > 60 Est GFR (Non-Af Amer) > 60 Random Glucose 76 Calcium 8.4 Phosphorus 3.2 Magnesium 1.6 L Total Bilirubin 0.6 AST 376 H D ALT 1650 H Alkaline Phosphatase 118 Total Creatine Kinase 2969 H CK-MB (CK-2) 41.7 H CK-MB (CK-2) % 1.4 L Troponin I 0.21 H* Total Protein 4.8 L Albumin 2.7 L Globulin 2.1 Albumin/Globulin Ratio 1.3 Valproic Acid 21 L Assessment & Plan - Assessment and Plan (Free Text) Assessment: 48 year old male with past medical history of seizures, psychosis/schizophrenia who presented to ED via EMS for agitation was admitted for lab abnormalities including elevated LFTs, leukocytosis, hyperkalemia, azotemia, and elevated CPK indicating infectious process, rhabdo, KAREN, and elevated troponin rule out ACS. Plan: Muscle Rigidity/Contracture in setting of seizure disorder - History Of Seizure disorder, with previous prescription of Depakote 500mg PO BID - Valproic Acid level 21, low - Continue AED - Load with depakote 10mg/kg - Increase depakote maintenance to 750mg PO BID - Psych evaluation follow up Patient case and plan discussed with attending Simin Cross PGY2 - Date & Time Date: 03/03/18 Time: 10:40
--- NOTE | 2018-03-03 12:58 | CP.PCM.PN ---
<Godfrey Saenz - Last Filed: 03/03/18 13:42> Subjective - Date & Time of Evaluation Date of Evaluation: 03/03/18 Time of Evaluation: 12:54 - Subjective Subjective: Godfrey Saenz D.O PGY-1, Internal Medicine progress note for Dr. Morales Patient was examined at bedside, no acute overnight events. Patient offers no new complaints at this time. Denies fevers, chills, chest pain, shortness of breath, abdominal pain, N/V/D. Objective - Vital Signs/Intake and Output Vital Signs (last 24 hours): Temp Pulse Resp BP Pulse Ox 97.8 F 69 21 116/70 98 03/03/18 12:00 03/03/18 12:00 03/03/18 12:00 03/03/18 12:00 03/02/18 18:02 - Medications Medications: Current Medications Aspirin (Ecotrin) 81 mg PO DAILY [facility] Last Admin: 03/03/18 09:36 Dose: 81 mg Atorvastatin Calcium (Lipitor) 20 mg PO DIN [facility] Last Admin: 03/02/18 22:10 Dose: 20 mg Carvedilol (Coreg) 3.125 mg PO BID [facility] Last Admin: 03/03/18 09:38 Dose: Not Given Divalproex Sodium (Depakote Dr(*Bid*)) 500 mg PO BID [facility] PRN Reason: Protocol Last Admin: 03/03/18 09:35 Dose: 500 mg Heparin Sodium (Porcine) (Heparin) 5,000 units SC Q8 [facility] PRN Reason: Protocol Last Admin: 03/03/18 06:41 Dose: 5,000 units Dextrose/Sodium Chloride (Dextrose 5%/0.9% Ns 1000 Ml) 1,000 mls @ 150 mls/hr IV .Q6H40M [facility] Last Admin: 03/03/18 06:42 Dose: 150 mls/hr Ziprasidone (Geodon Inj) 20 mg IM Q6H PRN; Protocol PRN Reason: Agitation - Labs Labs: 03/03/18 06:30 03/03/18 06:30 - Constitutional Appears: No Acute Distress - Head Exam Head Exam: ATRAUMATIC, NORMAL INSPECTION - Eye Exam Eye Exam: Normal appearance - ENT Exam ENT Exam: Mucous Membranes Moist - Respiratory Exam Respiratory Exam: Clear to Ausculation Bilateral. absent: Rales, Rhonchi, Wheezes - Cardiovascular Exam Cardiovascular Exam: REGULAR RHYTHM, +S1, +S2. absent: Gallop, Rubs, Murmur - GI/Abdominal Exam GI & Abdominal Exam: Soft, Normal Bowel Sounds. absent: Tenderness - Extremities Exam Extremities Exam: Joint Swelling. absent: Calf Tenderness, Pedal Edema - Neurological Exam Neurological Exam: Alert, Awake, Oriented x3 - Psychiatric Exam Psychiatric exam: Normal Affect, Normal Mood - Skin Skin Exam: Dry, Normal Color, Warm Assessment and Plan - Assessment and Plan (Free Text) Assessment: Mr. Reece is a 48 year old male with a past medical history of seizure disorder , EKG changes, and psychosis/schizophrenia who was admitted for evaluation and treatment of agitation. In the emergency department the patient underwent routine lab work revealing a leukocytosis, anemia, hypoglycemia, elevated potassium, hypochloremia, azotemia, elevated LFTs, and elevated CPK. Plan: Rhabdomyolysis - CPK: 2969 from [address]24- downtrending - c/w D5 NS @ 150 cc/hr - recheck CPK and trend Agitation/ Erractic Behavior - ziprasidon 20mg IM Q6H PRN - psychiatry consulted- appreciate recommendations History of Seizure Disorder - depakote level: 21 (normal: 50-100) - started patient on home depakote - seizure precautions - neurology consulted- appreciate recommendations Elevated Troponins, EKG ST Depression - cardiology consulted- as per recommendations no anticoagulation required at this time - V/Q scan (03/03): Low probability for pulmonary embolism - EKG- Sinus Tachycardia HR 112 bpm, QTc 430ms, LV hypertrophy with repolariztion abnormality - troponins: 0.46, 0.29, 024, 0.21- downtrending - c/w aspirin 81mg daily Elevated LFTs - likely rhabdomyolysis vs drug induced - acetaminophen level is below 10 and UDS negative - LFT's downtrending - continue to monitor Acute Kidney Injury- resolved - creatine 1.1 from 1.9- downtrending - likely secondary to rhabdomyolysis Leukocytosis - resolved - likely stress induced vs drug induced - UDS negative Normocytic Anemia - hemoglobin reviewed, trended, and appreciated - at baseline Prophylaxis - DVT ppx- SCDs Patient seen, case reviewed with, and plan approved by attending, Dr. Morales. <Morales,Lorena R - Last Filed: 03/03/18 16:32> Objective - Vital Signs/Intake and Output Vital Signs (last 24 hours): Temp Pulse Resp BP Pulse Ox 97.8 F 55 L 21 116/70 98 03/03/18 12:00 03/03/18 14:00 03/03/18 12:00 03/03/18 12:00 03/02/18 18:02 - Medications Medications: Current Medications Aspirin (Ecotrin) 81 mg PO DAILY [facility] Last Admin: 03/03/18 09:36 Dose: 81 mg Atorvastatin Calcium (Lipitor) 20 mg PO DIN [facility] Last Admin: 03/02/18 22:10 Dose: 20 mg Carvedilol (Coreg) 3.125 mg PO BID [facility] Last Admin: 03/03/18 09:38 Dose: Not Given Divalproex Sodium (Depakote Dr(*Bid*)) 500 mg PO BID [facility] PRN Reason: Protocol Last Admin: 03/03/18 09:35 Dose: 500 mg Heparin Sodium (Porcine) (Heparin) 5,000 units SC Q8 [facility] PRN Reason: Protocol Last Admin: 03/03/18 13:43 Dose: 5,000 units Dextrose/Sodium Chloride (Dextrose 5%/0.9% Ns 1000 Ml) 1,000 mls @ 150 mls/hr IV .Q6H40M [facility] Last Admin: 03/03/18 06:42 Dose: 150 mls/hr Ziprasidone (Geodon Inj) 20 mg IM Q6H PRN; Protocol PRN Reason: Agitation - Labs Labs: 03/03/18 06:30 03/03/18 06:30 Attending/Attestation - Attestation I have personally seen and examined this patient.: Yes I have fully participated in the care of the patient.: Yes I have reviewed all pertinent clinical information, including history, physical exam and plan: Yes Notes (Text): Patient seen and examined by me at 11:50AM with resident. Case including HPI, physical exam, and physical assessment and plan discussed with resident. Agree with above with following additions/corrections. Patient states that he is feeling fine. He denies chest pain or shortness of breath. No headaches or dizziness. No fevers or chills. No nausea, vomiting, abdominal pain. No dysuria. No neck pain or back pain. No diarrhea or constipation. Patient is on one to one. Patient was witnessed by myself to have contractures of his arms while yelling when he was being transported for V/Q Scan. Patient does not remember this. Physical exam: Gen: Awake and alert sitting up in bed in no acute distress HEENT: Normocephalic, atraumatic. Extraocular muscles intact, pupils equal reactive, no scleral icterus. Oropharynx is pink and moist, no pharyngeal erythema or exudate appreciated. Neck is supple. Hearing grossly intact. Ears and nose externally unremarkable. Cardiovascular: Normal rhythm, normal S1-S2. No murmurs, rubs, or gallops appreciated Pulmonary: Normal respiratory effort. No rhonchi, rales or wheezing appreciated. Gastrointestinal: Soft, nontender, nondistended, positive bowel sounds all 4 quadrants, no guarding Musculoskeletal: Normal range of motion all extremities, no calf tenderness, no CVA tenderness. Central nervous system: AAO 3. Cranial nerves 2-12 grossly intact. 5/5 muscle strength all extremities. Sensation intact. Dermatologic: Skin warm and dry Assessment and plan: Patient is a 48-year-old male with past medical history significant for seizure disorder, EKG abnormalities, psychosis and schizophrenia that presented to the emergency room for abnormal movements and yelling. Patient found to have KAREN, leukocytosis, hyperkalemia, hypoglycemia, elevated LFTs, elevated troponin, and rhabdomyolysis 1. Ingestion of unknown substance. Involuntary muscle contractures may be secondary to this. Psych consulted, recommendations pending. Patient is unsure what he took. Patient believed it was heroin, however UDS is negative. 2. Rhabdomyolysis. Likely secondary to involuntary muscle contractures. Resolving. Continue IV fluids. 3. Elevated LFTs. Likely secondary to rhabdomyolysis. Resolving, continue IV fluids. 4. KAREN. May be secondary to ingestion of unknown substance, dehydration, and rhabdomyolysis. Resolving, continue IV fluids. 5. Elevated troponin. May be demand ischemia. Cardiology consulted, recommendations appreciated. Continue with aspirin and Coreg. Monitor on telemetry. Downtrending troponin. Patient was scheduled for outpatient stress test 03/01/2018 however he did not go 6. Hyperkalemia. Resolved. Continue to monitor. 7. Hypoglycemia. Resolved. Continue to monitor. 8. Leukocytosis. Likely reactive. Resolved. 9. Anemia. Chronic. H&H downtrended, likely dilutional. Continue to monitor. 10. History of seizure disorder. Continue home Depakote. Depakote levels low, neurology following, recommendations appreciated. 11. History of agitation and psychosis. Psych consulted, recommendations pending. Continue on Geodon every 6 hours as needed. Continue one-to-one 12. Elevated D-dimer. V/Q scan low probablity. 13. DVT prophylaxis. Heparin 5000 units subcutaneous every 8 hours Case was discussed in detail with the patient and medical information specialist regarding current diagnosis and treatment plan.
--- NOTE | 2018-03-03 13:10 | NM ---
Date of service: 03/03/2018 COMPARISON: 03/02/2018 chest TECHNIQUE: 34.9 mCi technetium 99-m DTPA aerosol. 3.2 mCI technetium 99-m MAA administered intravenously. FINDINGS: VENTILATION COMPONENT: Normal. PERFUSION COMPONENT: Normal. IMPRESSION: Lowprobability ventilation perfusion scan for pulmonary embolism.
[2018-03-03] MEDS ORDERED: SODIUM CHLORIDE 0.9% IVPB ONE (18:00)
[2018-03-03] MEDS ORDERED: Divalproex 250 mg DR (BID formulation) PO SCH (18:00)
[2018-03-03] MEDS ORDERED: VALPROATE IVPB ONE (18:00)
[2018-03-04] MEDS: Dextrose 5%/0.9% NS 1,000 ML IV SCH ×5 (06:45→22:53)
[2018-03-04 07:00] LABS: BASO # 0.03 K/mm3 (0.0-2.0); BASO % 0.7 % (0.0-3.0); EOS # 0.1 (0.0-0.7); EOS % 2.6 % (1.5-5.0); GRAN # 2.43 (1.4-6.5); GRAN % 58.2 % (50.0-68.0); HEMOGLOBIN 8.5 g/dL (14.0-18.0); LYMPH % 24.4 % (22.0-35.0); MEAN CELL VOLUME 81.7 fl (80.0-105.0); MEAN CORPUSCULAR HEMOGLOBIN 26.8 pg (25.0-35.0); MEAN CORPUSCULAR HGB CONC 32.8 g/dl (31.0-37.0); MEAN PLATELET VOLUME 10.3 fl (7.0-11.0); MONO # 0.6 (0.1-0.6); MONO % 14.1 % (1.0-6.0); RBC 3.17 10^6/uL (3.5-6.1); RED CELL DISTRIBUTION WIDTH 15.1 % (11.5-14.5); WHITE BLOOD COUNT 4.2 10^3/ul (4.5-11.0)
[2018-03-04 08:06] LABS: ALB/GLOB RATIO 1.3 (1.1-1.8); ALBUMIN 2.7 g/dL (3.0-4.8); AST/SGOT 341 U/L (17-59); BLOOD UREA NITROGEN 15 mg/dL (7-21); GFR AFRICAN-AMERICAN > 60; GFR NON-AFRICAN AMERICAN > 60
[2018-03-04 08:13] LABS: ALT/SGPT 1410 U/L (7-56)
[2018-03-04 08:19] LABS: CK MB% 1.1 % (2.5-3.0); CK-MB 14.2 ng/mL (0.0-3.6)
[2018-03-04] MEDS: Divalproex 250 mg DR (BID formulation) PO SCH ×2 (11:00→17:33)
--- NOTE | 2018-03-04 11:19 | CP.PCM.PN ---
<Trista Aguila - Last Filed: 03/04/18 11:46> Subjective - Date & Time of Evaluation Date of Evaluation: 03/04/18 Time of Evaluation: 11:15 - Subjective Subjective: Trista Aguila D.O. -- [place] [facility] -- Medicine Progress note Patient was examined at bedside this morning. Per patient, no acute events occurred over night. Patient offers no new complaints at this time. Patient says he was able to tolerate renal diet. Patient otherwise denies muscle pain, headache, fevers, chills, chest pain, shortness of breath, abdominal pain, nausea, vomiting and/or diarrhea. Objective - Vital Signs/Intake and Output Vital Signs (last 24 hours): Temp Pulse Resp BP Pulse Ox 97.8 F 84 18 112/74 99 03/04/18 06:00 03/04/18 10:59 03/04/18 06:00 03/04/18 06:00 03/04/18 06:00 Intake and Output: 03/04/18 03/04/18 06:59 18:59 Intake Total 240 Balance 240 - Medications Medications: Current Medications Aspirin (Ecotrin) 81 mg PO DAILY [facility] Last Admin: 03/04/18 11:00 Dose: 81 mg Carvedilol (Coreg) 3.125 mg PO BID [facility] Last Admin: 03/04/18 10:59 Dose: 3.125 mg Divalproex Sodium (Depakote Dr (*Bid*)) 750 mg PO BID [facility] PRN Reason: Protocol Last Admin: 03/04/18 11:00 Dose: 750 mg Heparin Sodium (Porcine) (Heparin) 5,000 units SC Q8 [facility] PRN Reason: Protocol Last Admin: 03/04/18 06:44 Dose: 5,000 units Dextrose/Sodium Chloride (Dextrose 5%/0.9% Ns 1000 Ml) 1,000 mls @ 150 mls/hr IV .Q6H40M [facility] Last Admin: 03/04/18 06:45 Dose: 150 mls/hr Ziprasidone (Geodon Inj) 20 mg IM Q6H PRN; Protocol PRN Reason: Agitation - Labs Labs: 03/04/18 06:00 03/04/18 06:00 - Constitutional Appears: No Acute Distress - Head Exam Head Exam: ATRAUMATIC, NORMAL INSPECTION, NORMOCEPHALIC - Eye Exam Eye Exam: EOMI, Normal appearance - ENT Exam ENT Exam: Mucous Membranes Moist, Normal Exam - Neck Exam Neck Exam: Normal Inspection - Respiratory Exam Respiratory Exam: Clear to Ausculation Bilateral, NORMAL BREATHING PATTERN. absent: Decreased Breath Sounds, Rales, Wheezes, Respiratory Distress - Cardiovascular Exam Cardiovascular Exam: RRR. absent: Murmur - GI/Abdominal Exam GI & Abdominal Exam: Soft, Normal Bowel Sounds. absent: Guarding, Tenderness, Rebound - Extremities Exam Extremities Exam: Joint Swelling. absent: Pedal Edema - Back Exam Back Exam: NORMAL INSPECTION - Neurological Exam Neurological Exam: Alert, Awake, Oriented x3 - Psychiatric Exam Psychiatric exam: Normal Affect, Normal Mood - Skin Skin Exam: Dry, Intact, Normal Color, Warm Assessment and Plan - Assessment and Plan (Free Text) Assessment: Mr. Reece is a 48 year old male with a past medical history of seizure disorder , EKG changes, and psychosis/schizophrenia who was admitted for evaluation and treatment of agitation. In the emergency department the patient underwent routine lab work revealing a leukocytosis, anemia, hypoglycemia, elevated potassium, hypochloremia, azotemia, elevated liver function tests (LFTs), and elevated total creatine kinase (CPK). Patient was subsequently admitted for evaluation and treatment of rhabdomyolysis. Rhabdomyolysis, improved - CPK: 1271 from 2969, downtrending - Continue with D5 Normal Saline @ 150 cc/hr - Continue to recheck CPK and trend Agitation/ Erractic Behavior - Ziprasidon 20mg IM Q6H PRN - Psychiatry consulted, recommendations appreciated History of Seizure Disorder - Depakote level, low: 21 (patient's previous prescription of Depakote 500mg PO BID) - Load with depakote 10mg/kg, as per neuro - Increase depakote maintenance to 750mg PO BID, as per neuro - Continue with seizure precautions - Neurology consulted, recommendations appreciated Elevated Troponins, EKG ST Depression, likely secondary to rhabdomyolysis - No anticoagulation required at this time, per cardiology - V/Q scan (03/03): Low probability for pulmonary embolism - EKG repeat (03/03): HR 52, QTc: 425, Sinus bradycardia, right ventricular conduction delay, moderate voltage criteria for LVH, may be normal variant. ST- T changes. - Troponins downtrending - Continue aspirin 81mg daily - Cardiology consulted, recommendations appreciated Elevated LFTs, downtrending - Likely secondary to rhabdomyolysis vs drug induced - AST: 341 from 376, ALT 1410 from 1650 - Acetaminophen level is below 10 and UDS negative on admission - Continue to monitor Acute Kidney Injury- resolved - Likely secondary to rhabdomyolysis - Creatinine 0.9 from 1.1 Leukocytosis, resolved - Likely stress induced vs drug induced - UDS negative - Continue to monitor Normocytic Anemia, asymptomatic - Hemoglobin reviewed, trended, and appreciated - Continue to monitor DVT Prophylaxis: - SCDs Patient seen and case reviewed in detail with Attending Physician, Dr. Andrew Aguila PGY1 <Lorena Morales R - Last Filed: 03/04/18 15:02> Objective - Vital Signs/Intake and Output Vital Signs (last 24 hours): Temp Pulse Resp BP Pulse Ox 98.2 F 69 20 124/74 99 03/04/18 12:00 03/04/18 12:00 03/04/18 12:00 03/04/18 12:00 03/04/18 06:00 Intake and Output: 03/04/18 03/04/18 06:59 18:59 Intake Total 240 Balance 240 - Medications Medications: Current Medications Aspirin (Ecotrin) 81 mg PO DAILY [facility] Last Admin: 03/04/18 11:00 Dose: 81 mg Carvedilol (Coreg) 3.125 mg PO BID [facility] Last Admin: 03/04/18 10:59 Dose: 3.125 mg Divalproex Sodium (Depakote Dr (*Bid*)) 750 mg PO BID [facility] PRN Reason: Protocol Last Admin: 03/04/18 11:00 Dose: 750 mg Heparin Sodium (Porcine) (Heparin) 5,000 units SC Q8 [facility] PRN Reason: Protocol Last Admin: 03/04/18 06:44 Dose: 5,000 units Dextrose/Sodium Chloride (Dextrose 5%/0.9% Ns 1000 Ml) 1,000 mls @ 100 mls/hr IV .Q10H [facility] Quetiapine Fumarate (Seroquel) 50 mg PO HS [facility] PRN Reason: Protocol Ziprasidone (Geodon Inj) 20 mg IM Q6H PRN; Protocol PRN Reason: Agitation - Labs Labs: 03/04/18 06:00 03/04/18 06:00 Attending/Attestation - Attestation I have personally seen and examined this patient.: Yes I have fully participated in the care of the patient.: Yes I have reviewed all pertinent clinical information, including history, physical exam and plan: Yes Notes (Text): Patient seen and examined by me at 10:00AM with resident. Case including HPI, physical exam, and physical assessment and plan discussed with resident. Agree with above with following additions/corrections. Patient states he is feeling better. He denies any contractures of his arms. No chest pain or shortness of breath. No neck pain or back pain. No headaches or dizziness. No fevers or chills. No nausea, vomiting, abdominal pain. No dysuria. No diarrhea or constipation. Patient is on one to one. Patient's mother at bedside. Patient requesting that we discussed patient's current condition with mother. Physical exam: Gen: Awake and alert sitting up in bed in no acute distress HEENT: Normocephalic, atraumatic. Extraocular muscles intact, pupils equal reactive, no scleral icterus. Oropharynx is pink and moist, no pharyngeal erythema or exudate appreciated. Neck is supple. Cardiovascular: Normal rhythm, normal S1-S2. No murmurs, rubs, or gallops appreciated Pulmonary: Normal respiratory effort. No rhonchi, rales or wheezing appreciated. Gastrointestinal: Soft, nontender, nondistended, positive bowel sounds all 4 quadrants, no guarding Musculoskeletal: Normal range of motion all extremities, no calf tenderness, no CVA tenderness. Central nervous system: AAO 3. Cranial nerves 2-12 grossly intact. 5/5 muscle strength all extremities. Sensation intact. Dermatologic: Skin warm and dry Assessment and plan: Patient is a 48-year-old male with past medical history significant for seizure disorder, EKG abnormalities, psychosis and schizophrenia that presented to the emergency room for abnormal movements and yelling. Patient found to have KAREN, leukocytosis, hyperkalemia, hypoglycemia, elevated LFTs, elevated troponin, and rhabdomyolysis 1. Elevated LFTs. Likely secondary to rhabdomyolysis. Improving. Continue to IV fluids. Continue to monitor. 2. Ingestion of unknown substance. Involuntary muscle contractures may be secondary to this. Psych consulted, recommendations appreciated. Patient is unsure what he took. Patient believed it was heroin, however UDS is negative. 3. Rhabdomyolysis. Likely secondary to involuntary muscle contractures. CPK downtrending. Continue IV fluids. Continue to monitor. 4. KAREN. May be secondary to ingestion of unknown substance, dehydration, and rhabdomyolysis. Resolved. Continue to monitor. 5. Elevated troponin. May be demand ischemia. Cardiology consulted, recommendations appreciated. Continue with aspirin and Coreg. Monitor on telemetry. Downtrending troponin. Patient was scheduled for outpatient stress test 03/01/2018 however he did not go 6. Hyperkalemia. Resolved. Continue to monitor. 7. Hypoglycemia. Resolved. Continue to monitor. 8. Leukocytosis. Likely reactive. Resolved. 9. Anemia. Chronic. H&H downtrended, likely dilutional. Continue to monitor. 10. History of seizure disorder. Continue home Depakote. Depakote levels low, neurology following, recommendations appreciated. 11. History of agitation and psychosis. Psych consulted, recommendations appreciated. Placed on Seroquel 50 mg at bedtime. Continue on Geodon every 6 hours as needed. Continue one-to-one 12. Elevated D-dimer. V/Q scan with low probablity for PE. 13. DVT prophylaxis. Heparin 5000 units subcutaneous every 8 hours Case was discussed in detail with the patient and medical i d sales regarding current diagnosis and treatment plan. Case also discussed with patient's mother as requested by patient.
--- NOTE | 2018-03-04 11:21 | CP.PCM.PCO ---
Physician Communication Note - Physician Communication Note Physician Communication Note: PT WAS ON THE LUNG NUCLEAR TESTING WHILE ROUNDING 03/03/18
[2018-03-05] MEDS: Dextrose 5%/0.9% NS 1,000 ML IV SCH ×4 (00:55→21:48)
--- NOTE | 2018-03-05 01:45 | CON ---
DATE: 03/04/2018 HISTORY OF PRESENT ILLNESS: Shortly, the patient is a 48-year-old male with questionable history of mental illness, rule out schizophrenia. The patient was admitted on the medical side for evaluation of abnormal movements, yelling. The patient reported that he used heroin, but urine drug screen was negative for any opioids. The patient was found to have labs abnormalities such as troponin elevated, lactate dehydrogenase elevated, total creatine kinase elevated, CK-MB1 elevated. Psych consult was called for evaluation of possible psychosis. The patient was seen and examined today. The patient is very well known to this senior writer from the previous consultation services, which took place here in [place] less than a month ago. The patient had similar presentation. This senior writer recommended screening by [facility], but the patient was not accepted for involuntary commitment. The patient was seen and examined today. The patient presented to be alert, guarded, intense eye contact. The patient said that he is not aware of the circumstances of his admission to the medical side. The patient's thought process is very concrete. The patient said that his mother as well as [id number] brought him to the hospital because "they thought that I have seizures." The patient was not able to comprehend the question what was the symptoms he had prior to hospitalization. The patient was keep repeating "I do not remember." The patient reported that he missed his appointment with [employer] because he had a job interview. The patient reported that he did not have any job and he missed his appointment for nothing. The patient denied hearing voices, denied seeing things, at the same time, the patient appears to be guarded, internally preoccupied and suspicious. The patient denied being depressed. Denied thoughts of harming himself or others, denied intents or plans. The patient preferred to have private conversation despite the fact that the patient's sister as well as mother next to him. The patient gave permission to talk to his mother as well as sister, but do not disclose information about substance problems and he preferred to have that in secret. The patient's mother and patient's sister expressed concerns about the patient. The patient's sister said that they brought the patient to [facility] Psychiatric evaluation on 02/21/2018 and the patient was discharged with the mobile crisis followup. The patient also was providing inconsistent stories about his opioid use and the patient was maximizing his history, but urine drug screen was negative for any substances. The patient's sister and mother said that "right now, Trevor is learning what to stay in order and not to be admitted to the hospital." Besides that, the patient has episodes of wandering, disappearing from the house and history of slapping behavior, screaming uncontrollably and not sleeping at the nighttime. Besides that, there is no acute changes with the patient's presentation and family wants the patient to go to inpatient rehab, but the patient expressed no interest or intent to go there. 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 PHYSICAL EXAMINATION: VITAL SIGNS: Stable. Temperature 98.2, pulse is 69, blood pressure, respirations 20, oxygen saturation is 99%. MEDICATIONS: Reviewed. The patient is on aspirin, Coreg, Depakote, heparin and Geodon IM 20 as needed for agitation. This senior writer will implement Seroquel at the nighttime to help the patient with disorganized thoughts and paranoia. Reports reviewed. Labs reviewed. The patient had troponin, which is trending down. Blood type: Lactate dehydrogenase is elevated as well as total creatine kinase elevated. AST and ALT elevated. Potassium level was elevated at the time of admission. BUN and creatinine 30 and 27 respectively at admission. Urine drug screen was negative for any substances. MENTAL STATUS EXAMINATION: The patient presented to be alert, intense eye contact. The patient is guarded and suspicious. Mood described as fine. Affect was constricted, closer to flat. Thought process, very concrete. Thought content, the patient had no abstractive thinking. The patient does not have any signs of acute psychosis, but the patient is oddly related and guarded. The patient adamantly denied thoughts of harming himself or others, denied intents or plan. Insight and judgment seems to be limited. Impulses are unpredictable. IMPRESSION: Rule out schizophrenia, rule out delirium. The patient was diagnosed with rhabdomyolysis. The patient's Depakote level was low, compliance is questionable. Elevated troponin is most likely due to rhabdomyolysis and troponin is going down. Elevated LFTs may be related to rhabdomyolysis or drug induced and all of the above could contribute to the patient's presentation. PLAN: Seroquel at the nighttime. The patient gave permission to talk to his mother and sister. No information would disclosed about the patient per patient request, but obtain collateral information from the family, please see above. The patient expressed no interest to go to the Psychiatric Inpatient Unit. The patient was screened by [facility] last admission and was in the Comprehensive Psychiatric Emergency at [facility] in 02/21/2018 was cleared. At this point, we monitor, we will try to build trust with the patient and offer him treatment, but the patient has no insight into his mental illness. Care of this patient took more than 45 minutes of this senior writer's time. Thank you very much for letting me participate in care of your patient. Tanisha Bang MD KOMAL
--- NOTE | 2018-03-05 07:07 | CP.PCM.PN ---
Subjective - Date & Time of Evaluation Date of Evaluation: 03/05/18 Time of Evaluation: 07:04 - Subjective Subjective: Mr. Reece was seen and examined at the bedside. He is alert, uninterested during the assessment. He denies any headache, dizziness. He has episode of agitation and restless last night. He is able to move all extremities spontaneously.Seroquel was given with no relief. He remains on 1:1 sitter for patient safety. There was no untoward events overnight. Objective - Vital Signs/Intake and Output Vital Signs (last 24 hours): Temp Pulse Resp BP Pulse Ox 97.2 F L 55 L 20 136/80 97 03/05/18 05:49 03/05/18 05:49 03/05/18 05:49 03/05/18 05:49 03/05/18 05:49 Intake and Output: 03/05/18 03/05/18 06:59 18:59 Intake Total 1560 Balance 1560 - Medications Medications: Current Medications Aspirin (Ecotrin) 81 mg PO DAILY [facility] Last Admin: 03/04/18 11:00 Dose: 81 mg Carvedilol (Coreg) 3.125 mg PO BID [facility] Last Admin: 03/04/18 17:33 Dose: 3.125 mg Divalproex Sodium (Depakote Dr (*Bid*)) 750 mg PO BID [facility] PRN Reason: Protocol Last Admin: 03/04/18 17:33 Dose: 750 mg Heparin Sodium (Porcine) (Heparin) 5,000 units SC Q8 [facility] PRN Reason: Protocol Last Admin: 03/05/18 05:24 Dose: Not Given Dextrose/Sodium Chloride (Dextrose 5%/0.9% Ns 1000 Ml) 1,000 mls @ 100 mls/hr IV .Q10H [facility] Last Admin: 03/05/18 00:55 Dose: Not Given Quetiapine Fumarate (Seroquel) 50 mg PO HS [facility] PRN Reason: Protocol Last Admin: 03/04/18 21:02 Dose: 50 mg Ziprasidone (Geodon Inj) 20 mg IM Q6H PRN; Protocol PRN Reason: Agitation - Labs Labs: 03/04/18 06:00 03/04/18 06:00 - Constitutional Appears: No Acute Distress - Head Exam Head Exam: NORMAL INSPECTION - Eye Exam Pupil Exam: PERRL - Neurological Exam Neurological Exam: Alert, Awake Neuro motor strength exam: Left Upper Extremity: 5, Right Upper Extremity: 5, Left Lower Extremity: 5, Right Lower Extremity: 5 Additional comments: awake, alert, uninterested during assessment. Assessment and Plan (1) Seizure Assessment & Plan: Casr discussed with Dr. Hannah, continue all current medical regimen including psychiatry medication. Recommend hydration, repeat valproic level, hydration, treat any electrolyte abnormalities, if the patient will be very sleepy today, he received a total of 100 mg of seroquel last night with no effect, maybe change the time of seroquel. Status: Chronic
[2018-03-05] MEDS: Divalproex 250 mg DR (BID formulation) PO SCH ×2 (10:44→18:17)
[2018-03-05 13:13] LABS: BASO # 0.02 K/mm3 (0.0-2.0); BASO % 0.5 % (0.0-3.0); GRAN # 3.18 (1.4-6.5); GRAN % 78.5 % (50.0-68.0); LYMPH # 0.5 (1.2-3.4); LYMPH % 11.4 % (22.0-35.0); MEAN CELL VOLUME 81.3 fl (80.0-105.0); MEAN CORPUSCULAR HEMOGLOBIN 27.1 pg (25.0-35.0); MEAN CORPUSCULAR HGB CONC 33.3 g/dl (31.0-37.0); MEAN PLATELET VOLUME 10.8 fl (7.0-11.0); MONO # 0.4 (0.1-0.6); MONO % 8.6 % (1.0-6.0); RBC 3.32 10^6/uL (3.5-6.1); RED CELL DISTRIBUTION WIDTH 15.2 % (11.5-14.5); WHITE BLOOD COUNT 4.1 10^3/ul (4.5-11.0)
[2018-03-05 13:25] LABS: ALB/GLOB RATIO 1.4 (1.1-1.8); ALBUMIN 3.1 g/dL (3.0-4.8); ALT/SGPT 1112 U/L (7-56); AST/SGOT 152 U/L (17-59); BLOOD UREA NITROGEN 12 mg/dL (7-21); CALCIUM 8.8 mg/dL (8.4-10.5); GFR AFRICAN-AMERICAN > 60; GFR NON-AFRICAN AMERICAN > 60
[2018-03-05 13:31] LABS: CK-MB 4.7 ng/mL (0.0-3.6)
--- NOTE | 2018-03-05 13:31 | PN ---
DATE: 03/05/2018 FOLLOWUP NOTE SUBJECTIVE: The patient was followed up today. The patient presented to be irritable and annoyed, flat affect. This va underwriter recommended Seroquel overnight, but the patient was agitated, restless, but not aggressive. Seroquel was given to him 100 mg. The patient is not willing to participate in interview. Gave permission to talk to his family yesterday, but requested no information should be disclosed to them. As per family, the patient was screened by [facility] on 02/21/2018, was followed up by [facility]. The patient also was giving inconsistent stories, was manipulating screeners saying that his episodes of confusion and agitation are related to the drugs. This va underwriter would like to emphasize the fact that urine drug screen was negative for any substances. At the same time, the patient denied being depressed at the moment of interview today as well as yesterday. The patient denied hearing voices today and yesterday. The patient presented to be oddly related and guarded, but not acutely psychotic. OBJECTIVE: VITAL SIGNS: Reviewed. Temperature 97.2, pulse 55, blood pressure 136/80, respirations 20, oxygen and saturation is 97%. MEDICATIONS: Reviewed. The patient is on aspirin, Coreg, dextrose, Depakote 750 b.i.d., heparin, Seroquel will be given 100 mg at the nighttime scheduled, Geodon as needed. LABORATORY DATA: Most recent was from yesterday. Please see results. The patient is still on one-to-one for safety. The patient never verbalize any thoughts of killing himself or others. MENTAL STATUS EXAMINATION: The patient appears to be alert, guarded, suspicious, but not acutely psychotic. Intermittent eye contact. Mood described as fine. Affect was constricted. Thought process concrete. Thought content: The patient appears to be guarded, but denied hearing voices, denied seeing things. Insight and judgment seem to be limited. Impulses are unpredictable. IMPRESSION: As per history, most likely the patient has schizophrenia spectrum, rule out delirium. The patient was diagnosed with rhabdomyolysis. Depakote level was low, questionable compliance with the medications, elevated troponin most likely due to rhabdomyolysis and elevated liver function tests. PLAN: Seroquel at the nighttime will be increased to 100 mg at the nighttime and at present moment, the patient does not meet the criteria for [facility] evaluation. The patient does not want to sign in. The patient denied being depressed. Denied thoughts of harming himself or others. We will follow up and advise accordingly. This va underwriter had prolonged conversation with the patient's family yesterday, but no information would disclose. Please see yesterday's note for more detailed information. Tanisha Bang MD
--- NOTE | 2018-03-05 18:05 | CP.PCM.PN ---
<Trista Aguila - Last Filed: 03/05/18 18:01> Subjective - Date & Time of Evaluation Date of Evaluation: 03/05/18 Time of Evaluation: 09:45 - Subjective Subjective: Trista Aguila D.O. -- Admin Secretary -- Medicine Progress note Patient was examined at bedside this morning. Per patient, no acute events occurred over night. Patient offers no new complaints at this time. Patient says he was able to tolerate renal diet. Patient otherwise denies muscle pain, headache, fevers, chills, chest pain, shortness of breath, abdominal pain, nausea, vomiting and/or diarrhea. Objective - Vital Signs/Intake and Output Vital Signs (last 24 hours): Temp Pulse Resp BP Pulse Ox 98.2 F 80 18 139/74 95 03/05/18 17:49 03/05/18 17:49 03/05/18 17:49 03/05/18 17:49 03/05/18 17:49 Intake and Output: 03/05/18 03/05/18 06:59 18:59 Intake Total 1560 Balance 1560 - Medications Medications: Current Medications Aspirin (Ecotrin) 81 mg PO DAILY [facility] Last Admin: 03/05/18 10:44 Dose: 81 mg Carvedilol (Coreg) 3.125 mg PO BID [facility] Last Admin: 03/05/18 09:38 Dose: Not Given Divalproex Sodium (Depakote Dr (*Bid*)) 750 mg PO BID RAVI PRN Reason: Protocol Last Admin: 03/05/18 10:44 Dose: 750 mg Heparin Sodium (Porcine) (Heparin) 5,000 units SC Q8 RAVI PRN Reason: Protocol Last Admin: 03/05/18 15:17 Dose: 5,000 units Dextrose/Sodium Chloride (Dextrose 5%/0.9% Ns 1000 Ml) 1,000 mls @ 100 mls/hr IV .Q10H [facility] Last Admin: 03/05/18 10:49 Dose: 100 mls/hr Quetiapine Fumarate (Seroquel) 100 mg PO HS RAVI PRN Reason: Protocol Ziprasidone (Geodon Inj) 20 mg IM Q6H PRN; Protocol PRN Reason: Agitation - Labs Labs: 03/05/18 12:45 03/05/18 12:45 - Head Exam Head Exam: ATRAUMATIC, NORMAL INSPECTION, NORMOCEPHALIC - Eye Exam Eye Exam: EOMI, Normal appearance - ENT Exam ENT Exam: Mucous Membranes Moist, Normal Exam - Respiratory Exam Respiratory Exam: NORMAL BREATHING PATTERN - GI/Abdominal Exam GI & Abdominal Exam: Soft, Normal Bowel Sounds. absent: Tenderness - Extremities Exam Extremities Exam: Normal Inspection - Back Exam Back Exam: NORMAL INSPECTION - Neurological Exam Neurological Exam: Alert, Awake, Oriented x3 - Psychiatric Exam Psychiatric exam: Normal Affect, Normal Mood - Skin Skin Exam: Dry, Intact, Normal Color, Warm Assessment and Plan - Assessment and Plan (Free Text) Assessment: Mr. Reece is a 48 year old male with a past medical history of seizure disorder , EKG changes, and psychosis/schizophrenia who was admitted for evaluation and treatment of agitation. In the emergency department the patient underwent routine lab work revealing a leukocytosis, anemia, hypoglycemia, elevated potassium, hypochloremia, azotemia, elevated liver function tests (LFTs), and elevated total creatine kinase (CPK). Patient was subsequently admitted for evaluation and treatment of rhabdomyolysis. Rhabdomyolysis, improved - CPK: 623 from 1271, downtrending - Continue with D5 Normal Saline @ 150 cc/hr - Continue to recheck CPK and trend Agitation/ Erractic Behavior - Ziprasidon 20mg IM Q6H PRN - Psychiatry consulted, recommendations appreciated History of Seizure Disorder - Valproic acid at therapeutic level - Continue with depakote maintenance to 750mg PO BID, as per neuro - Continue with seizure precautions - Neurology consulted, recommendations appreciated Elevated Troponins, EKG ST Depression, downtrending - Likely secondary to rhabdomyolysis likely induced by illicit drug ingestion - No anticoagulation required at this time, per cardiology - V/Q scan (03/03): Low probability for pulmonary embolism - EKG repeat (03/03): HR 52, QTc: 425, Sinus bradycardia, right ventricular conduction delay, moderate voltage criteria for LVH, may be normal variant. ST- T changes - Continue aspirin 81mg daily - Cardiology consulted, recommendations appreciated Elevated LFTs, downtrending - Likely secondary to rhabdomyolysis vs drug induced - AST: 152 down from 341; ALT 1112 down from 1410 - Acetaminophen level is below 10 and UDS negative on admission - Continue to monitor Acute Kidney Injury- resolved - Likely secondary to rhabdomyolysis - Creatinine 0.8 from 0.9 Leukocytosis, resolved - Likely stress induced vs drug induced - UDS negative - Continue to monitor Normocytic Anemia, asymptomatic - Hemoglobin reviewed, trended, and appreciated - Continue to monitor DVT Prophylaxis: - SCDs Patient seen and case reviewed in detail with Attending Physician, Dr. Andrew Aguila PGY1 <Lorena Morales R - Last Filed: 03/05/18 20:06> Objective - Vital Signs/Intake and Output Vital Signs (last 24 hours): Temp Pulse Resp BP Pulse Ox 98.2 F 80 18 139/74 95 03/05/18 17:49 03/05/18 17:49 03/05/18 17:49 03/05/18 17:49 03/05/18 17:49 - Medications Medications: Current Medications Aspirin (Ecotrin) 81 mg PO DAILY [facility] Last Admin: 03/05/18 10:44 Dose: 81 mg Carvedilol (Coreg) 3.125 mg PO BID [facility] Last Admin: 03/05/18 09:38 Dose: Not Given Divalproex Sodium (Depakote Dr (*Bid*)) 750 mg PO BID RAVI PRN Reason: Protocol Last Admin: 03/05/18 18:17 Dose: 750 mg Heparin Sodium (Porcine) (Heparin) 5,000 units SC Q8 RAVI PRN Reason: Protocol Last Admin: 03/05/18 15:17 Dose: 5,000 units Dextrose/Sodium Chloride (Dextrose 5%/0.9% Ns 1000 Ml) 1,000 mls @ 100 mls/hr IV .Q10H [facility] Last Admin: 03/05/18 19:20 Dose: 100 mls/hr Quetiapine Fumarate (Seroquel) 100 mg PO HS RAVI PRN Reason: Protocol Ziprasidone (Geodon Inj) 20 mg IM Q6H PRN; Protocol PRN Reason: Agitation - Labs Labs: 03/05/18 12:45 03/05/18 12:45 Attending/Attestation - Attestation I have personally seen and examined this patient.: Yes I have fully participated in the care of the patient.: Yes I have reviewed all pertinent clinical information, including history, physical exam and plan: Yes Notes (Text): Patient seen and examined by me at 09:35AM with resident. Case including HPI, physical exam, and physical assessment and plan discussed with resident. Agree with above with following additions/corrections. Patient states he is feeling good and wants to go home. Was refusing blood work this morning. Importance of blood work discussed with patient. Patient denies any more contractures of his arms. No nausea, vomiting, abdominal pain. No chest pain or shortness of breath. No neck pain or back pain. No headaches or dizziness. No fevers or chills. No dysuria. No diarrhea or constipation. Patient is on one to one. Physical exam: Gen: Awake and alert sitting up in bed in no acute distress HEENT: Normocephalic, atraumatic. Extraocular muscles intact, pupils equal reactive, no scleral icterus. Oropharynx is pink and moist, no pharyngeal erythema or exudate appreciated. Neck is supple. Cardiovascular: Normal rhythm, normal S1-S2. No murmurs, rubs, or gallops appreciated Pulmonary: Normal respiratory effort. No rhonchi, rales or wheezing appreciated. Gastrointestinal: Soft, nontender, nondistended, positive bowel sounds all 4 quadrants, no guarding Musculoskeletal: Normal range of motion all extremities, no calf tenderness, no CVA tenderness. Central nervous system: AAO 3. Cranial nerves 2-12 grossly intact. 5/5 muscle strength all extremities. Sensation intact. Dermatologic: Skin warm and dry Assessment and plan: Patient is a 48-year-old male with past medical history significant for seizure disorder, EKG abnormalities, psychosis and schizophrenia that presented to the emergency room for abnormal movements and yelling. Patient found to have KAREN, leukocytosis, hyperkalemia, hypoglycemia, elevated LFTs, elevated troponin, and rhabdomyolysis. 1. Bradycardia. In 30s overnight. Secondary to Coreg. Coreg held for now. Monitor on tele. Cardio following, recommendations appreciated. 2. Elevated LFTs. Likely secondary to rhabdomyolysis. Improving. Continue to IV fluids. Continue to monitor. 3. Ingestion of unknown substance. Involuntary muscle contractures may be secondary to this. Psych consulted, recommendations appreciated. Patient is unsure what he took. Patient believed it was heroin, however UDS is negative. Patient is refusing admission to psych. 4. Rhabdomyolysis. Likely secondary to involuntary muscle contractures. CPK downtrending. Continue IV fluids. Continue to monitor. 5. KAREN. May be secondary to ingestion of unknown substance, dehydration, and rhabdomyolysis. Resolved. Continue to monitor. 6. Elevated troponin. May be demand ischemia. Cardiology consulted, recommendations appreciated. Continue with aspirin. Coreg held for now secondary to bradycardia. Monitor on telemetry. Downtrending troponin. Patient was scheduled for outpatient stress test 03/01/2018 however he did not go 7. Hyperkalemia. Resolved. Continue to monitor. 8. Hypoglycemia. Resolved. Continue to monitor. 9. Leukocytosis. Likely reactive. Resolved. 10. Anemia. Chronic. H&H stable. Continue to monitor. 11. History of seizure disorder. Continue Depakote, dose increased by neurology. 12. History of agitation and psychosis. Psych consulted, recommendations appreciated. Seroquel increased to 100mg PO at bedtime. Continue on Geodon every 6 hours as needed. Continue one-to-one 13. Elevated D-dimer. V/Q scan with low probablity for PE. 14. DVT prophylaxis. Heparin 5000 units subcutaneous every 8 hours Case was discussed in detail with the patient and medical assistant supervisor regarding current diagnosis and treatment plan.
[2018-03-06 00:04] VITALS: O2SAT 98
--- NOTE | 2018-03-06 00:25 | CON ---
DATE: 03/05/2018 SERVICE: Cardiology. REASON FOR DICTATION: Covering Dr. Jatinder Billy MD. REASON FOR CONSULTATION: Heart rate bradycardia, 47. BRIEF CLINICAL HISTORY: A 48-year-old male with past medical history of seizure disorder, abnormal EKG, psychosis, schizophrenia. Came to the emergency room for agitation. Apparently, it looks like the patient admitted on 03/02/2018. The patient has borderline positive troponin. The patient was on Coreg yesterday. Heart rate was bradycardic, so cardiac consult was called to follow up. Apparently, the patient had cardiac consult with Dr. Billy on 03/02/2018. As for now, the consult is not available. 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 The patient denies any chest pain, shortness of breath or any palpitation. PAST MEDICAL HISTORY: Significant for psychiatric disorder, seizure disorder. SOCIAL HISTORY: Denies any regular smoking, every now and then he smokes or occasionally. Socially drinks. Denies any history of substance abuse. CURRENT MEDICATIONS: Takes Depakote 500 mg p.o. b.i.d. REVIEW OF SYSTEMS: As per HPI. FAMILY HISTORY: Noncontributory. PHYSICAL EXAMINATION: VITAL SIGNS: Temperature afebrile, heart rate 59, blood pressure 133/80. HEENT: PERRLA. Extraocular muscles intact. NECK: Supple. No carotid bruit or thyromegaly. CHEST: Clear to auscultation. HEART: S1, S2 regular. ABDOMEN: Soft. EXTREMITIES: Clubbing and cyanosis negative. LABORATORY DATA: Blood workup as follows: WBC 4.0, hemoglobin 8.5, hematocrit 25.9, platelet count 159. Chemistry shows sodium 140, potassium 3.9, chloride 106, carbon dioxide 29, anion gap of 15, BUN , creatinine 0.9. Total CPK 10,906, but MB fraction 1.1, troponin 0.42. EKG showed sinus tachycardia, possible left atrial abnormality, repolarization abnormality. IMPRESSION: A 48-year-old male with past medical history of psychiatric disorder, seizure disorder, rhabdomyolysis, positive troponin, most likely secondary to rhabdomyolysis because of CPK-MB 1.1. Admitted with seizure disorder. Cardiology consult was called by Dr. Billy with abnormal troponin, which does not look like to be acute myocardial infarction; it looks more rhabdomyolysis. Today, re-consulted because of bradycardia. The patient is on beta jenae. RECOMMENDATION: We will hold beta jenae. Since the patient is dropping H and H, we will not give anticoagulation. Continue seizure medication. We will follow up CPK, troponin. DVT prophylaxis is okay, but we will not fully anticoagulate. We will transfer care tomorrow to Dr. Billy. We will repeat blood workup tomorrow. Get lipid profile, TSH, hemoglobin A1c. Repeat CPK in the morning. Repeat echo is not done within the last 6 months. Old chart reviewed. The patient had echocardiography done on 02/14/2018 that showed normal LV size, ejection fraction 65-70%, mild tricuspid regurgitation, RV systolic pressure 37, trace pulmonary insufficiency, trace AI. The patient was scheduled stress test on 03/01/2018, but the patient did not show up. We will transfer care tomorrow to Dr. Billy. Thank you, Dr. Bonilla for providing us the opportunity in taking care of the patient, Trevor Reece. Mary Vicente MD
[2018-03-06 06:17] VITALS: PULSE 52
[2018-03-06 07:11] LABS: BASO # 0.02 K/mm3 (0.0-2.0); BASO % 0.3 % (0.0-3.0); EOS % 0.6 % (1.5-5.0); GRAN # 4.84 (1.4-6.5); GRAN % 73.7 % (50.0-68.0); HEMOGLOBIN 9.2 g/dL (14.0-18.0); LYMPH # 1.1 (1.2-3.4); LYMPH % 16.3 % (22.0-35.0); MEAN CELL VOLUME 80.6 fl (80.0-105.0); MEAN CORPUSCULAR HEMOGLOBIN 26.7 pg (25.0-35.0); MEAN CORPUSCULAR HGB CONC 33.1 g/dl (31.0-37.0); MEAN PLATELET VOLUME 11.3 fl (7.0-11.0); MONO # 0.6 (0.1-0.6); MONO % 9.1 % (1.0-6.0); RBC 3.45 10^6/uL (3.5-6.1); RED CELL DISTRIBUTION WIDTH 15.8 % (11.5-14.5); WHITE BLOOD COUNT 6.6 10^3/ul (4.5-11.0)
[2018-03-06 07:28] LABS: TROPONIN I 0.07 ng/mL
[2018-03-06 07:30] LABS: ALB/GLOB RATIO 1.3 (1.1-1.8); ALBUMIN 3.2 g/dL (3.0-4.8); ALT/SGPT 836 U/L (7-56); AST/SGOT 94 U/L (17-59); BLOOD UREA NITROGEN 9 mg/dL (7-21); CALCIUM 8.7 mg/dL (8.4-10.5); GFR AFRICAN-AMERICAN > 60; GFR NON-AFRICAN AMERICAN > 60; HDL CHOLESTEROL 31 mg/dL (29-60)
[2018-03-06 07:36] LABS: CK-MB 1.8 ng/mL (0.0-3.6)
[2018-03-06 07:43] LABS: LDL CHOLESTEROL 53 mg/dL (0-129)
--- NOTE | 2018-03-06 08:55 | CON ---
DATE: 03/04/2018 CARDIOLOGY CONSULT REASON FOR CONSULTATION: Borderline troponin elevation. An extensive history was taken from the patient's mother and the patient's sister at the bedside. HISTORY OF PRESENT ILLNESS: The patient is a 48 years old male, who lives in a Public Housing in [facility], abuses heroin, who was recently diagnosed with seizures and was admitted because of altered mental status. The patient was noticed by the mother and the sister to have episodes of spastic movement of his extremities with yelling. The mother noticed that around 02/15/2018; however, according to the that she notices strange behavior since November. Although, the patient has lived with his sister and the sister became 22 years old and she never noticed any similar behavior like this except for the fact that the patient was introverted and does not communicate with his sister or his mom at home until he moved out and lived in [facility]. The patient was admitted because of similar behavioral episode and was found to have borderline troponin elevation. The patient was recommended to undergo outpatient stress test at the time of his cardiac evaluation a few weeks ago. No reported chest pain; however, it is impossible to take history from the patient as he is having similar episode of yelling and spastic contraction of all extremities. SOCIAL HISTORY: According to the sister, the patient has history of opiate abuse and he drinks alcohol. He lives by himself. MEDICATIONS: Coreg 3.125 mg twice a day, Depakote 750 mg twice a day, aspirin 81 mg once a day, Geodon injection 20 mg IM every 6 hours p.r.n. for agitation, heparin 5000 units subcutaneous every 8 hours, Lipitor 20 mg once a day. PHYSICAL EXAMINATION GENERAL: Patient is a middle-aged male, who is in a continuous state of yelling and contraction; however, he is approachable and does not seem to be harmful. VITAL SIGNS: Blood pressure 128/78, heart rate 63, temperature 98.1, respirations 20. HEENT: Normocephalic. CHEST: Clear. HEART: Sounds are regular. EXTREMITIES: No pedal edema. LABORATORY DATA: Hemoglobin and hematocrit 8.8 and 26.9. White count and platelet count are within normal limits. Toxicologies came as negative. Valproic acid is 21. D-dimer is 366. Today's SMA-7 is within normal limits except for BUN of 25. Yesterday's BUN and creatinine on admission are 27 and 1.9 with potassium of 5.6. Troponins were 0.46, 0.29, 0.24 and 0.21 and declining trend. Initial total CPK was 10,870 and today is 2969. Liver enzymes are significantly elevated. EKG revealed sinus bradycardia at the rate of 52 with ____ in V1 and nonspecific inferior ST-T wave changes. Recent echocardiographic study done in 02/15/2018 revealed normal ejection fraction and mild mitral insufficiency, no vegetation noticed. V/Q scan is low probability for PE. Recent EEG was a normal study. No focal slowing, seizure like activity was observed. Neurology consult and evaluation concluded the seizure, psychosis/schizophrenia, muscle rigidity, contracture in the setting of seizure disorder. ASSESSMENT: 1. Borderline troponin elevation unlikely represents acute myocardial injury. 2. Significantly elevated liver enzymes, I could say that underlying hepatocellular disease. 3. Anemia. 4. A catatonic state. RECOMMENDATIONS: Continue Coreg 3.125 mg twice a day, Depakote 750 mg once a day, aspirin 81 mg once a day, subcutaneous Heparin 5000 units every 8 hours. I recommended to discontinue Lipitor in view of elevated total CPK. Case was discussed at length with the patient's mother and sister. I suggested, if we can have any contact with his company in [facility] to give further information about his medical history; however, according to the sister, he is unlikely seeking any medical care in [facility]. Jatinder Billy MD
[2018-03-06] MEDS: Divalproex 250 mg DR (BID formulation) PO SCH (09:29)
[2018-03-06 11:33] VITALS: BP 148/88; RESP 20; TEMP 98.8
--- NOTE | 2018-03-06 11:38 | CP.PCM.DIS ---
<DanyGodfrey - Last Filed: 03/06/18 16:40> Provider - Provider Date of Admission: 03/02/18 12:31 Attending physician: Darren Chapman MD Primary care physician: NO PRIMARY CARE PROVIDER Time Spent in preparation of Discharge (in minutes): 45 Diagnosis - Discharge Diagnosis (1) Agitation Status: Resolved Priority: Medium (2) Rhabdomyolysis Status: Acute (3) Polysubstance abuse Status: Chronic Priority: Medium (4) Dystonia Status: Acute Priority: Medium (5) Transaminitis Status: Acute Priority: Medium (6) Anemia Status: Chronic Priority: Medium (7) Elevated troponin Status: Resolved Priority: Medium (8) KAREN (acute kidney injury) Status: Resolved Priority: Medium (9) EKG abnormalities Status: Resolved Priority: Medium (10) Hyperkalemia Status: Acute (11) Leukocytosis Status: Resolved Priority: Medium (12) Seizure Status: Chronic Priority: Medium (13) Acute psychosis Status: Resolved Priority: Medium Hospital Course - Lab Results Lab Results: Most Recent Lab Values WBC 6.6 10^3/ul (4.5-11.0) D 03/06/18 06:30 RBC 3.45 10^6/uL (3.5-6.1) L 03/06/18 06:30 Hgb 9.2 g/dL (14.0-18.0) L 03/06/18 06:30 Hct 27.8 % (42.0-52.0) L 03/06/18 06:30 MCV 80.6 fl (80.0-105.0) 03/06/18 06:30 MCH 26.7 pg (25.0-35.0) 03/06/18 06:30 MCHC 33.1 g/dl (31.0-37.0) 03/06/18 06:30 RDW 15.8 % (11.5-14.5) H 03/06/18 06:30 Plt Count 192 10^3/uL (120.0-450.0) 03/06/18 06:30 MPV 11.3 fl (7.0-11.0) H 03/06/18 06:30 Gran % 73.7 % (50.0-68.0) H 03/06/18 06:30 Lymph % (Auto) 16.3 % (22.0-35.0) L 03/06/18 06:30 Bosque % (Auto) 9.1 % (1.0-6.0) H 03/06/18 06:30 Eos % (Auto) 0.6 % (1.5-5.0) L 03/06/18 06:30 Baso % (Auto) 0.3 % (0.0-3.0) 03/06/18 06:30 Gran # 4.84 (1.4-6.5) 03/06/18 06:30 Lymph # (Auto) 1.1 (1.2-3.4) L 03/06/18 06:30 Bosque # (Auto) 0.6 (0.1-0.6) 03/06/18 06:30 Eos # (Auto) 0.0 (0.0-0.7) 03/06/18 06:30 Baso # (Auto) 0.02 K/mm3 (0.0-2.0) 03/06/18 06:30 D-Dimer, Quantitative 356 ng/mL (0-243) H 03/02/18 20:05 Sodium 146 mmol/L (132-148) 03/06/18 06:30 Potassium 3.4 mmol/L (3.6-5.0) L 03/06/18 06:30 Chloride 110 mmol/L (98-107) H 03/06/18 06:30 Carbon Dioxide 27 mmol/L (21-33) 03/06/18 06:30 Anion Gap 13 (10-20) 03/06/18 06:30 BUN 9 mg/dL (7-21) 03/06/18 06:30 Creatinine 0.8 mg/dl (0.8-1.5) 03/06/18 06:30 Est GFR ( Amer) > 60 03/06/18 06:30 Est GFR (Non-Af Amer) > 60 03/06/18 06:30 Random Glucose 91 mg/dL (70-110) 03/06/18 06:30 Calcium 8.7 mg/dL (8.4-10.5) 03/06/18 06:30 Phosphorus 2.9 mg/dL (2.5-4.5) 03/06/18 06:30 Magnesium 1.7 mg/dL (1.7-2.2) 03/06/18 06:30 Total Bilirubin 0.2 mg/dL (0.2-1.3) 03/06/18 06:30 AST 94 U/L (17-59) H D 03/06/18 06:30 ALT 836 U/L (7-56) H 03/06/18 06:30 Alkaline Phosphatase 105 U/L (38-126) 03/06/18 06:30 Ammonia 33 umol/L (9-33) 03/02/18 11:30 Lactate Dehydrogenase 1660 U/L (333-699) H 03/06/18 06:30 Total Creatine Kinase 285 U/L (35-230) H 03/06/18 06:30 CK-MB (CK-2) 1.8 ng/mL (0.0-3.6) 03/06/18 06:30 CK-MB (CK-2) % 1.1 % (2.5-3.0) L 03/04/18 06:00 Troponin I 0.07 ng/mL D 03/06/18 06:30 Total Protein 5.7 g/dL (5.8-8.3) L 03/06/18 06:30 Albumin 3.2 g/dL (3.0-4.8) 03/06/18 06:30 Globulin 2.5 gm/dL 03/06/18 06:30 Albumin/Globulin Ratio 1.3 (1.1-1.8) 03/06/18 06:30 Triglycerides 95 mg/dL (35-160) 03/06/18 06:30 Cholesterol 99 mg/dL (130-200) L 03/06/18 06:30 LDL Cholesterol Direct 53 mg/dL (0-129) 03/06/18 06:30 HDL Cholesterol 31 mg/dL (29-60) 03/06/18 06:30 TSH 3rd Generation 0.41 mIU/mL (0.46-4.68) L 03/06/18 06:30 Urine Opiates Screen Negative (NEGATIVE) 03/02/18 11:30 Urine Methadone Screen Negative (NEGATIVE) 03/02/18 11:30 Acetaminophen < 10.0 ug/ml (10.0-20.0) L 03/02/18 09:45 Ur Barbiturates Screen Negative (NEGATIVE) 03/02/18 11:30 Valproic Acid 58 ug/mL (50.0-100.0) 03/05/18 12:45 Ur Phencyclidine Scrn Negative (NEGATIVE) 03/02/18 11:30 Ur Amphetamines Screen Negative (NEGATIVE) 03/02/18 11:30 U Benzodiazepines Scrn Negative (NEGATIVE) 03/02/18 11:30 U Oth Cocaine Metabols Negative (NEGATIVE) 03/02/18 11:30 U Cannabinoids Screen Negative (NEGATIVE) 03/02/18 11:30 - Hospital Course Hospital Course: Mr. Reece is a 48 year old male with a past medical history of seizure disorder , EKG abnormalities, and psychosis/schizophrenia who presents to the emergency department via EMS for evaluation and treatment of agitation. Patient was also found to have leukocytosis, anemia, hypoglycemia, elevated potassium, hypochloremia, azotemia, elevated LFTs, and elevated CPK. He was admitted and was treated with aspirin, carvedilol, IV fluids, potassium chloride, calcium gluconate, magnesium, depakote, heparin, and seroquel. During the course of his hospital stay, he underwent EKG, chest xray, and lung perfusion/ventilation scan. EKG showed sinus bradycardia with a rate of 52 with short ME, ST- and T- changes. Chest xray showed no active disease, and lung perfusion/ventilation scan showed low probability for a pulmonary embolism. Cardiology (Dr. Vicente), neurology (Dr. Hannah) and psychiatry (Dr. Bang) were consulted in the management and treatment of this patient. Cardiology recommended to continue coreg 3.125mg BID, depakote 750mg QD, aspirin 81mg QD, and heparin 5000 units Q8. Lipitor was held due to elevated CPK. Neurology measured the patient's depakote levels and found that it was low. Patient was then given a loading dose in addition to the normal dose of depakote. Psychiatry evaluated the patient and recommended him to start seroquel 150mg at bedtime. On 03/06, patient signed out AMA. Risks and benefits were thoroughly discussed with patient. All questions and concerns were addressed. Patient was given prescription for Aspirin 81mg and Seroquel 150mg to be taken at bedtime. He was also instructed to resume his home medications. Patient was educated to stop taking drugs, the risks and dangers of drug abuse were discussed in detail. Patient was told the risks involved for leaving against medical advice, these risks include but not limited to: possible stroke, worsening of dizziness, passing out, falls, increased morbidity and mortality, , paralysis, and loss of limbs. He was instructed to follow up with his primary care doctor within one week. Patient further informed to return to the ED for worsening of symptoms. Discharge Exam - Head Exam Head Exam: ATRAUMATIC, NORMAL INSPECTION - Eye Exam Eye Exam: Normal appearance - ENT Exam ENT Exam: Mucous Membranes Moist - Respiratory Exam Respiratory Exam: Clear to PA & Lateral. absent: Rales, Rhonchi, Wheezes - Cardiovascular Exam Cardiovascular Exam: REGULAR RHYTHM, +S1, +S2. absent: Gallop, Rubs, Systolic Murmur - GI/Abdominal Exam GI & Abdominal Exam: Normal Bowel Sounds, Soft. absent: Tenderness - Extremities Exam Additional comments: no calf tenderness or pedal edema - Neurological Exam Neurological exam: Alert, Oriented x3 - Psychiatric Exam Psychiatric exam: Normal Affect, Normal Mood - Skin Skin Exam: Dry, Normal Color, Warm Discharge Plan - Discharge Medications Prescriptions: Aspirin [Ecotrin] 81 mg PO DAILY #15 tabec QUEtiapine [Seroquel] 150 mg PO HS #15 tab - Follow Up Plan Condition: STABLE Disposition: AGAINST MEDICAL ADVICE Referrals: PCP,LONNIE [Primary Care Provider] - <Darren Chapman - Last Filed: 03/06/18 16:52> Provider - Provider Date of Admission: 03/02/18 12:31 Attending physician: Darren Chapman MD Primary care physician: NO PRIMARY CARE PROVIDER Hospital Course - Lab Results Lab Results: Most Recent Lab Values WBC 6.6 10^3/ul (4.5-11.0) D 03/06/18 06:30 RBC 3.45 10^6/uL (3.5-6.1) L 03/06/18 06:30 Hgb 9.2 g/dL (14.0-18.0) L 03/06/18 06:30 Hct 27.8 % (42.0-52.0) L 03/06/18 06:30 MCV 80.6 fl (80.0-105.0) 03/06/18 06:30 MCH 26.7 pg (25.0-35.0) 03/06/18 06:30 MCHC 33.1 g/dl (31.0-37.0) 03/06/18 06:30 RDW 15.8 % (11.5-14.5) H 03/06/18 06:30 Plt Count 192 10^3/uL (120.0-450.0) 03/06/18 06:30 MPV 11.3 fl (7.0-11.0) H 03/06/18 06:30 Gran % 73.7 % (50.0-68.0) H 03/06/18 06:30 Lymph % (Auto) 16.3 % (22.0-35.0) L 03/06/18 06:30 Bosque % (Auto) 9.1 % (1.0-6.0) H 03/06/18 06:30 Eos % (Auto) 0.6 % (1.5-5.0) L 03/06/18 06:30 Baso % (Auto) 0.3 % (0.0-3.0) 03/06/18 06:30 Gran # 4.84 (1.4-6.5) 03/06/18 06:30 Lymph # (Auto) 1.1 (1.2-3.4) L 03/06/18 06:30 Bosque # (Auto) 0.6 (0.1-0.6) 03/06/18 06:30 Eos # (Auto) 0.0 (0.0-0.7) 03/06/18 06:30 Baso # (Auto) 0.02 K/mm3 (0.0-2.0) 03/06/18 06:30 D-Dimer, Quantitative 356 ng/mL (0-243) H 03/02/18 20:05 Sodium 146 mmol/L (132-148) 03/06/18 06:30 Potassium 3.4 mmol/L (3.6-5.0) L 03/06/18 06:30 Chloride 110 mmol/L (98-107) H 03/06/18 06:30 Carbon Dioxide 27 mmol/L (21-33) 03/06/18 06:30 Anion Gap 13 (10-20) 03/06/18 06:30 BUN 9 mg/dL (7-21) 03/06/18 06:30 Creatinine 0.8 mg/dl (0.8-1.5) 03/06/18 06:30 Est GFR ( Amer) > 60 03/06/18 06:30 Est GFR (Non-Af Amer) > 60 03/06/18 06:30 Random Glucose 91 mg/dL (70-110) 03/06/18 06:30 Hemoglobin A1c 5.0 % (4.2-6.5) 03/06/18 06:30 Calcium 8.7 mg/dL (8.4-10.5) 03/06/18 06:30 Phosphorus 2.9 mg/dL (2.5-4.5) 03/06/18 06:30 Magnesium 1.7 mg/dL (1.7-2.2) 03/06/18 06:30 Total Bilirubin 0.2 mg/dL (0.2-1.3) 03/06/18 06:30 AST 94 U/L (17-59) H D 03/06/18 06:30 ALT 836 U/L (7-56) H 03/06/18 06:30 Alkaline Phosphatase 105 U/L (38-126) 03/06/18 06:30 Ammonia 33 umol/L (9-33) 03/02/18 11:30 Lactate Dehydrogenase 1660 U/L (333-699) H 03/06/18 06:30 Total Creatine Kinase 285 U/L (35-230) H 03/06/18 06:30 CK-MB (CK-2) 1.8 ng/mL (0.0-3.6) 03/06/18 06:30 CK-MB (CK-2) % 1.1 % (2.5-3.0) L 03/04/18 06:00 Troponin I 0.07 ng/mL D 03/06/18 06:30 Total Protein 5.7 g/dL (5.8-8.3) L 03/06/18 06:30 Albumin 3.2 g/dL (3.0-4.8) 03/06/18 06:30 Globulin 2.5 gm/dL 03/06/18 06:30 Albumin/Globulin Ratio 1.3 (1.1-1.8) 03/06/18 06:30 Triglycerides 95 mg/dL (35-160) 03/06/18 06:30 Cholesterol 99 mg/dL (130-200) L 03/06/18 06:30 LDL Cholesterol Direct 53 mg/dL (0-129) 03/06/18 06:30 HDL Cholesterol 31 mg/dL (29-60) 03/06/18 06:30 TSH 3rd Generation 0.41 mIU/mL (0.46-4.68) L 03/06/18 06:30 Urine Opiates Screen Negative (NEGATIVE) 03/02/18 11:30 Urine Methadone Screen Negative (NEGATIVE) 03/02/18 11:30 Acetaminophen < 10.0 ug/ml (10.0-20.0) L 03/02/18 09:45 Ur Barbiturates Screen Negative (NEGATIVE) 03/02/18 11:30 Valproic Acid 58 ug/mL (50.0-100.0) 03/05/18 12:45 Ur Phencyclidine Scrn Negative (NEGATIVE) 03/02/18 11:30 Ur Amphetamines Screen Negative (NEGATIVE) 03/02/18 11:30 U Benzodiazepines Scrn Negative (NEGATIVE) 03/02/18 11:30 U Oth Cocaine Metabols Negative (NEGATIVE) 03/02/18 11:30 U Cannabinoids Screen Negative (NEGATIVE) 03/02/18 11:30 Hepatitis A IgM Ab Negative (NEGATIVE) 03/06/18 10:05 Hep Bs Antigen Negative (NEGATIVE) 03/06/18 10:05 Hep B Core IgM Ab Negative (NEGATIVE) 03/06/18 10:05 Hepatitis C Antibody Negative (NEGATIVE) 03/06/18 10:05 Attending/Attestation - Attestation I have personally seen and examined this patient.: Yes I have fully participated in the care of the patient.: Yes I have reviewed all pertinent clinical information, including history, physical exam and plan: Yes Notes (Text): 03/06/18 16:49 Attending note; Patient seen and examined with resident. Patient is alert and awake, oriented 3. Patient wanted to sign AMA. Patient is a 48-year-old male with past medical history significant for seizure disorder, EKG abnormalities, psychosis and schizophrenia that presented to the emergency room for abnormal movements and yelling. Patient found to have KAREN, leukocytosis, hyperkalemia, hypoglycemia, elevated LFTs, elevated troponin, and rhabdomyolysis Secondary to drug abuse. Possibly sympathetic drug abuse suspected. Currently acute kidney injury, hyperkalemia, rhabdomyolysis resolved. LFTs improved significantly. Elevated troponin; currently normalized. Denies any chest pain, shortness of breath. Patient did not follow-up with stress test last week. Psychiatric evaluation appreciated. Patient was explained in detail about his diagnosis and treatment option. Complete drug abuse cessation is strongly advised. Patient refused to stay in hospital. Signed AGAINST MEDICAL ADVICE. Prescription for Seroquel given as per psychiatrist. Currently patient does not have a PMD. Did not want to follow-up with [facility] clinic. Prognosis is poor.
--- NOTE | 2018-03-06 15:44 | CP.PCM.PCO ---
Physician Communication Note - Physician Communication Note Physician Communication Note: pt was d/c ANNIE today
[2018-03-06 16:01] LABS: HEPATITIS B SURFACE AG Negative (NEGATIVE)
[2018-03-06 16:06] LABS: HEPATITIS A IGM NEGATIVE (NEGATIVE)
[2018-03-06 16:07] LABS: HEPATITIS B CORE AB NEGATIVE (NEGATIVE)
[2018-03-06 16:18] LABS: HEPATITIS C ANTIBODY NEGATIVE (NEGATIVE)
--- NOTE | 2018-03-06 21:50 | PN ---
DATE: 03/06/2017 SUBJECTIVE: The patient denies any chest pain. He is calm. He is expecting to go home. PHYSICAL EXAMINATION: VITAL SIGNS: Blood pressure 148/88, heart rate 62, temperature is 98.8, respirations 20. HEENT: Normocephalic. CHEST: Clear. HEART: S1 and S2 regular. EXTREMITIES: No edema. LABORATORY DATA: Today's SMA-7, sodium 146, potassium 3.4, chloride 110, CO2 of 27, glucose 91, BUN 9, creatinine 0.8. Today hemoglobin and hematocrit 9.2 and 27.8; white count and platelet count are within normal limits. Ventilation perfusion scan, low probability for PE. ASSESSMENT: 1. Borderline troponin elevation upon admission. 2. Hypokalemia. 3. Improved renal failure and rhabdomyolysis. RECOMMENDATIONS: Case was discussed with resident, who stated that the patient is cleared by Psychiatry for discharge, optimize potassium replacement. 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. The troponin elevation is most likely escalated muscular injury rather than cardiac muscle injury. The official echocardiographic study on 02/18/2018 revealed normal ejection fraction and the plan is still to have the patient undergo a stress test as an outpatient. Jatinder Billy MD
== END 2018-03-06 12:13 | disposition left against medical advice (07) | DRG 560 ==
LOC: ED 09:23 → ERH 12:31 → 2RSO 18:33
PROVIDERS: ADMIT Internal Medicine; ATTEND Internal Medicine
DX: M62.82 Rhabdomyolysis (principal); N17.9 Acute kidney failure, unspecified; E87.5 Hyperkalemia; F20.9 Schizophrenia, unspecified; F11.10 Opioid abuse, uncomplicated; I36.1 Nonrheumatic tricuspid (valve) insufficiency; E87.6 Hypokalemia; G40.909 Epilepsy, unspecified, not intractable, without status epilepticus; F29 Unspecified psychosis not due to a substance or known physiological condition; E16.2 Hypoglycemia, unspecified; F17.200 Nicotine dependence, unspecified, uncomplicated; R45.1 Restlessness and agitation; F12.90 Cannabis use, unspecified, uncomplicated; D64.9 Anemia, unspecified; G24.9 Dystonia, unspecified; R00.1 Bradycardia, unspecified